=== PATIENT | female | born 1940 | race Caucasian/White ===

== ENCOUNTER 2016-08-16 17:59 | Emergency (ER) | payer BC, MEDICARE ==
[~2016-08-16] VITALS: Ht 160 cm; Wt 81.6 kg
[2016-08-16 18:00] VITALS: BP 156/84
[2016-08-16] MEDS ORDERED: IPRATRPIUM/ALBUTEROL 0.5/2.5MG 3 ML NEBU. NEB ONE (18:30)
[2016-08-16] MEDS ORDERED: PRED50TA PO (19:52)
--- NOTE | 2016-08-16 19:52 | PHYS DOC ---
Past Medical History Past Medical History: No Pertinent History Past Surgical History: Other Additional Past Surgical Histo: BILAT SINUS SGRY Alcohol Use: None Drug Use: None Adult General Chief Complaint Chief Complaint: SHORTNESS OF BREATH HPI HPI Patient is a 75 year old female who presents with sinus congestion. She reports chronic many year struggle with sinus problems having seen many specialists & undergone 2 sinus surgeries. Most recently over the past month she has been struggling with recurrent nasal/sinus congestion & dry cough with sensation of dyspnea because her nose is congested. She denies fevers/chills, chest pain, vomiting, abdominal pain, lower extremity pain/swelling. She has taken a course of steroids, azithromycin as well as augmentin, using mucinex & inhaler. She states [employer] doesn't work for her. She denies asthma, COPD, CAD, CHF. She is a nonsmoker but has been exposed to secondhand smoke. Review of Systems Review of Systems Constitutional: Denies fever or chills HENT: Reports nasal congestion, denies sore throat Respiratory: Reports cough & shortness of breath Cardiovascular: Denies chest pain or edema GI: Denies abdominal pain, nausea, vomiting Musculoskeletal: Denies back pain or joint pain Integument: Denies rash or skin lesions Neurologic: Denies headache, focal weakness or sensory changes Current Medications Current Medications Current Medications Medications (Trade) Dose Ordered Sig/Abisai Start Time Stop Time Status Last Admin Dose Admin Albuterol/ Ipratropium (Duoneb) 3 ml 1X ONCE 08/16/16 18:30 08/16/16 18:31 DC 08/16/16 18:37 3 ML Allergies Allergies Allergies Coded Allergies Type Severity Reaction Last Updated Verified naproxen Allergy Intermediate 11/03/14 No Physical Exam Physical Exam Constitutional: obese, no acute distress, non-toxic appearance. HENT: Normocephalic, atraumatic, bilateral external ears normal, oropharynx moist, no tonsillar enlargement/exudate, nose normal. No sinus tenderness with palpation. Eyes: conjunctiva normal, no discharge. Neck: supple, no stridor. Cardiovascular: RRR, no murmurs, no edema. Lungs & Thorax: LCTAB, no wheezing, no respiratory distress. oxygen saturation 100% on room air with good waveform Abdomen: soft, nontender, nondistended. Skin: Warm, dry, no erythema, no rash. Back: No tenderness. Extremities: No tenderness, no edema. no calf tenderness or swelling. Neurologic: Alert and oriented X 3, no focal deficits noted. Psychologic: Affect normal, judgement normal, mood normal. Current Patient Data Vital Signs Vital Signs Date Time Temp Pulse Resp B/P (MAP) Pulse Ox O2 Delivery O2 Flow Rate FiO2 08/16/16 18:37 96 Room Air 08/16/16 18:00 97.6 105 24 156/84 (108) 97.6 EKG EKG [] Radiology/Procedures Radiology/Procedures Chest x-ray: Interpreted by me: No cardiomegaly, no infiltrate, no pneumothorax , no acute process. Course & Med Decision Making Course & Med Decision Making Pertinent Labs and Imaging studies reviewed. (See chart for details) The patient presents with sinus congestion. Her oxygen saturation is 100% at rest,. Gave duoneb. Walking desat trial shows oygen saturation greater than or equal to 98% while ambulating on room air. Unremarkable CXR. Afebrile, I find no evidence of acute bacterial infection. Discussed risks of additional antibiotics. Not sure that additional steroids will provide benefit but she is not diabetic & requests additional steroid burst which I agreed to provide. Encouraged to continue home treatments - inhaler, mucinex, possibly try nonsedating antihistamine. Follow up with PCP or ENT if symptoms persist. Return for severe shortness of breath or chest pain, or otherwise worsening condition. [] Dragon Disclaimer Dragon Disclaimer This electronic medical record was generated, in whole or in part, using a voice recognition dictation system. Departure Departure Impression: Primary Impression: Upper respiratory infection Disposition: HOME, SELF-CARE Condition: STABLE Referrals: LUIZA RIVERA MD (PCP) Patient Instructions: Upper Respiratory Infection, Adult, [id number] Additional Instructions: You were seen in the emergency department today for shortness of breath. Your x- ray was normal and her oxygen saturation was 100%. This is likely a virus which will take time to get better. Please continue home treatments including inhaler , nasal spray, neti pot, also try nonsedating allergy medication such as claritin or zyrtec, & take prednisone. Follow up with primary care or ENT. Come back for severe shortness of breath or chest pain, or any otherwise worsening condition. Scripts Prednisone (PREDNISONE) 50 Mg Tablet 1 TAB PO DAILY, #5 TAB Prov: LYLE YANG MD 08/16/16 LYLE YANG MD Aug 16, 2016 19:52
--- NOTE | 2016-08-17 08:09 | RAD ---
PA AND LATERAL CHEST RADIOGRAPH Clinical Indication: sob. X2 weeks. Midsternal chest pain, rattling and wheezing lung sounds. Comparison: None. Findings: The cardiomediastinal silhouette is normal. Small hiatal hernia. Pulmonary vasculature is normal. Minimal linear scarring or atelectasis in the lingula. The lungs are otherwise clear. No pleural effusion or pneumothorax is seen. Diffuse demineralization. No obvious compression fracture. Left shoulder arthroplasty. IMPRESSION: 1. No acute cardiopulmonary process. 2. Small hiatal hernia.
== END 2016-08-16 19:59 | disposition home or self-care (01) ==
LOC: ER 17:59
DX: J06.9 Acute upper respiratory infection, unspecified (principal); Z88.6 Allergy status to analgesic agent
CPT/HCPCS: 71020; 94250; 94640; 99284; J7620; 99283-25

== ENCOUNTER 2018-01-16 09:29 | Observation (INO) | payer BC, MEDICARE ==
[~2018-01-16] VITALS: Ht 160 cm; Wt 80.3 kg
[~2018-01-16 09:29] MED LIST: PRED50TA PO
--- NOTE | 2018-01-16 10:17 | PHYS DOC ---
Past Medical History Past Medical History: Anxiety, Asthma, Depression Past Surgical History: Cholecystectomy, Hysterectomy, Tonsillectomy, Other Additional Past Surgical Histo: BILAT SINUS SGRY, BILAT SHOULDER, Alcohol Use: Occasionally Drug Use: None Adult General Chief Complaint Chief Complaint: WEAKNESS/GENERALIZED HPI HPI Patient is a 77 year old female who presents with worsening shortness of breath /dyspnea on exertion over the past month with generalized weakness. Symptoms get worse with exertion, patient is unable to climb a flight of stairs without having stopped. No chest pain, no palpitations, no lower extremity weakness. Patient does note that she has to sit upright at nighttime to sleep which is new for her over the past month. No fevers. No nausea or vomiting. She has been seen at an urgent care several times for presumed asthma/bronchitis and was started on inhaler which really hasn't improved symptoms at all. Currently she has no symptoms that she is laying in the bed. [] Review of Systems Review of Systems Constitutional: Denies fever or chills [] Eyes: Denies change in visual acuity, redness, or eye pain [] HENT: Denies nasal congestion or sore throat [] Respiratory: Reports cough that is nonproductive, and shortness of breath as per the history of present illness [] Cardiovascular: No additional information not addressed in HPI [] GI: Denies abdominal pain, nausea, vomiting, bloody stools or diarrhea [] : Denies dysuria or hematuria [] Musculoskeletal: Denies back pain or joint pain [] Integument: Denies rash or skin lesions [] Neurologic: Denies headache, focal weakness or sensory changes [] Endocrine: Denies polyuria or polydipsia [] All other systems were reviewed and found to be within normal limits, except as documented in this note. Current Medications Current Medications Current Medications Medications (Trade) Dose Ordered Sig/Abisai Start Time Stop Time Status Last Admin Dose Admin Aspirin (Children'S Aspirin) 324 mg 1X ONCE 01/16/18 10:30 01/16/18 10:31 DC 01/16/18 11:00 324 MG Allergies Allergies Allergies Coded Allergies Type Severity Reaction Last Updated Verified naproxen Allergy Intermediate 11/03/14 No Physical Exam Physical Exam Constitutional: Well developed, well nourished, no acute distress, non-toxic appearance. [] HENT: Normocephalic, atraumatic, bilateral external ears normal, oropharynx moist, no oral exudates, nose normal. [] Eyes: PERRLA, EOMI, conjunctiva normal, no discharge. [] Neck: Normal range of motion, no tenderness, supple, no stridor. [] Cardiovascular:Heart rate regular rhythm, no murmur [] Lungs & Thorax: Bilateral breath sounds clear to auscultation [] Abdomen: Bowel sounds normal, soft, no tenderness, no masses, no pulsatile masses. [] Skin: Warm, dry, no erythema, no rash. [] Back: No tenderness, no CVA tenderness. [] Extremities: No tenderness, no cyanosis, no clubbing, ROM intact, no edema. [] Neurologic: Alert and oriented X 3, normal motor function, normal sensory function, no focal deficits noted. [] Psychologic: Affect normal, judgement normal, mood normal. [] Current Patient Data Vital Signs Vital Signs Date Time Temp Pulse Resp B/P (MAP) Pulse Ox O2 Delivery O2 Flow Rate FiO2 01/16/18 10:00 98.0 71 16 197/90 (125) 97 Room Air 98.0 Lab Values Laboratory Tests Test 01/16/18 10:39 White Blood Count 6.1 x10^3/uL (4.0-11.0) Red Blood Count 4.47 x10^6/uL (3.50-5.40) Hemoglobin 13.8 g/dL (12.0-15.5) Hematocrit 40.0 % (36.0-47.0) Mean Corpuscular Volume 90 fL (79-100) Mean Corpuscular Hemoglobin 31 pg (25-35) Mean Corpuscular Hemoglobin Concent 34 g/dL (31-37) Red Cell Distribution Width 14.1 % (11.5-14.5) Platelet Count 272 x10^3/uL (140-400) Neutrophils (%) (Auto) 55 % (31-73) Lymphocytes (%) (Auto) 29 % (24-48) Monocytes (%) (Auto) 10 % (0-9) H Eosinophils (%) (Auto) 6 % (0-3) H Basophils (%) (Auto) 0 % (0-3) Neutrophils # (Auto) 3.4 x10^3uL (1.8-7.7) Lymphocytes # (Auto) 1.7 x10^3/uL (1.0-4.8) Monocytes # (Auto) 0.6 x10^3/uL (0.0-1.1) Eosinophils # (Auto) 0.4 x10^3/uL (0.0-0.7) Basophils # (Auto) 0.0 x10^3/uL (0.0-0.2) Sodium Level 137 mmol/L (136-145) Potassium Level 4.1 mmol/L (3.5-5.1) Chloride Level 102 mmol/L (98-107) Carbon Dioxide Level 25 mmol/L (21-32) Anion Gap 10 (6-14) Blood Urea Nitrogen 24 mg/dL (7-20) H Creatinine 1.1 mg/dL (0.6-1.0) H Estimated GFR (Cockcroft-Gault) 48.0 BUN/Creatinine Ratio 22 (6-20) H Glucose Level 92 mg/dL (70-99) Calcium Level 9.3 mg/dL (8.5-10.1) Magnesium Level 1.8 mg/dL (1.8-2.4) Total Bilirubin 0.4 mg/dL (0.2-1.0) Aspartate Amino Transferase (AST) 16 U/L (15-37) Alanine Aminotransferase (ALT) 15 U/L (14-59) Alkaline Phosphatase 78 U/L (46-116) Troponin I Quantitative < 0.017 ng/mL (0.000-0.055) Total Protein 7.2 g/dL (6.4-8.2) Albumin 3.3 g/dL (3.4-5.0) L Albumin/Globulin Ratio 0.8 (1.0-1.7) L Lipase 219 U/L (73-393) Laboratory Tests 01/16/18 10:39 Laboratory Tests 01/16/18 10:39 EKG EKG EKG shows sinus rhythm, axis of -2, QTC of 417 ms, no ST elevation[] Radiology/Procedures Radiology/Procedures Chest x-ray shows no acute cardiopulmonary abnormality, small hiatal hernia is present[] Course & Med Decision Making Course & Med Decision Making Pertinent Labs and Imaging studies reviewed. (See chart for details) ED course: Patient arrived, was placed in bed, in tolerate exam well. Patient had no pain, she was administered aspirin due to concern for this being cardiac related complaints today. She tolerated this well. Consultation was made with the hospitalist service for admission. Discussed findings and plan with patient who voiced understanding. All questions were answered. Medical decision making: There is no evidence of pneumonia or pneumothorax. Given the worsening symptoms with exertion concern that this is the patient's cardiac equivalent.[] Dragon Disclaimer Dragon Disclaimer This electronic medical record was generated, in whole or in part, using a voice recognition dictation system. Departure Departure Impression: Primary Impression: Dyspnea on exertion Additional Impression: Weakness Disposition: 09 ADMITTED INPATIENT Admitting Physician: Xie. Thornton Condition: STABLE Referrals: LUIZA RIVERA MD (PCP) Problem Qualifiers NONA MENDOZA DO Jan 16, 2018 10:17
[2018-01-16] MEDS ORDERED: ASPIRIN CHEWABLE 81 MG TABLET. PO ONE (10:30)
--- NOTE | 2018-01-16 10:35 | RAD ---
Two-view chest 01/16/2018 CLINICAL INDICATION: Weakness, shortness of air. COMPARISON: Chest 08/16/2016 FINDINGS: Cardiac and mediastinal silhouettes unremarkable. No pleural effusion, pneumothorax or focal consolidation. Minimal left basilar scarring. There is a small hiatal hernia. Bilateral shoulder arthroplasties. IMPRESSION: 1. No acute cardiopulmonary abnormality. 2. Small hiatal hernia. Electronically signed by: Valeriy Avendaño MD (01/16/2018 10:32 AM) [facility]
[2018-01-16 10:48] LABS: BASO % 0 % (0-3); EOS # 0.4 x10^3/uL (0.0-0.7); EOS % 6 % (0-3); HEMOGLOBIN 13.8 g/dL (12.0-15.5); LYMPH # 1.7 x10^3/uL (1.0-4.8); LYMPH % 29 % (24-48); MEAN CORPUSCULAR HEMOGLOBIN 31 pg (25-35); MEAN CORPUSCULAR HGB CONC 34 g/dL (31-37); MEAN CORPUSCULAR VOLUME 90 fL (79-100); MONO # 0.6 x10^3/uL (0.0-1.1); MONO % 10 % (0-9); NEUT # 3.4 x10^3uL (1.8-7.7); NEUT % 55 % (31-73); PLATELET COUNT 272 x10^3/uL (140-400); RED BLOOD COUNT 4.47 x10^6/uL (3.50-5.40); RED CELL DISTRIBUTION WIDTH 14.1 % (11.5-14.5); WHITE BLOOD COUNT 6.1 x10^3/uL (4.0-11.0)
[2018-01-16 10:55] LABS: CALCIUM 9.3 mg/dL (8.5-10.1); CREATININE 1.1 mg/dL (0.6-1.0); POTASSIUM 4.1 mmol/L (3.5-5.1)
[2018-01-16 10:59] LABS: PROTHROMBIN TIME PATIENT 12.6 SEC (11.7-14.0)
[2018-01-16 11:01] LABS: ALBUMIN 3.3 g/dL (3.4-5.0); ALBUMIN/GLOBULIN RATIO 0.8 (1.0-1.7); MAGNESIUM 1.8 mg/dL (1.8-2.4); TOTAL BILIRUBIN 0.4 mg/dL (0.2-1.0); TOTAL PROTEIN 7.2 g/dL (6.4-8.2)
[2018-01-16] MEDS ORDERED: ONDANSETRON PF 4 MG/2 ML VIAL. IV PRN (11:30)
[2018-01-16 12:30] VITALS: BP 148/92
[2018-01-16] MEDS ORDERED: ACET325T9 PO (13:03)
[2018-01-16] MEDS ORDERED: [UNRECOGNIZED DRUG - CODE] PO (13:03)
[2018-01-16] MEDS ORDERED: FLUO40CA9 PO (13:03)
--- NOTE | 2018-01-16 13:59 | CONS ---
DATE OF CONSULTATION: REASON FOR CONSULTATION: Shortness of breath. HISTORY OF PRESENT ILLNESS: The patient is a 77-year-old female with a 5- to 6-week history of productive cough, increased dyspnea on exertion, worsening to the point where she cannot go upstairs anymore. She is having trouble doing daily activities. She reports new increased trouble lying flat and now to the point of using 2 pillows per day to sleep at night. She reports increased anxiety lately. She reports some fevers and chills and denies any nausea, vomiting or headache. MEDICATIONS: Ondansetron and Prozac. ALLERGIES: ALEVE CAUSES HIVES. PAST MEDICAL HISTORY: Depression and chronic sinus infections. PAST SURGICAL HISTORY: Hysterectomy, gallbladder and bilateral shoulder surgeries. FAMILY HISTORY: Mom, enlarged heart. SOCIAL HISTORY: Tobacco denies. Alcohol denies. Recreational drugs, none. PHYSICAL EXAMINATION: GENERAL: In no acute distress, alert and oriented. LUNGS: Clear to auscultation bilaterally. HEART: Regular rate and rhythm. Normal S1 and S2. ABDOMEN: Normal bowel sounds. Soft, nontender to palpation. No organomegaly. EXTREMITIES: Mild 1+ edema, bilateral lower extremities. SKIN: No rashes or lesions. ASSESSMENT: 1. Dyspnea on exertion. 2. Acute kidney injury. 3. Anxiety. PLAN: 1. Given age, new symptoms, will start with Echo and determine further testing as needed. Thanks. RHIANNON ONEIL MD DR: TING/daxa JOB#: [id number] / [id number] KARTIK
[2018-01-16] MEDS ORDERED: ACETAMINOPHEN 325 MG TABLET. PO PRN (14:45)
[2018-01-16] MEDS ORDERED: LORazepam 0.5 MG TABLET PO PRN (14:45)
[2018-01-16 15:00] VITALS: BP 145/97
[2018-01-16] MEDS: FLUoxetine HCL 20 MG CAPSULE PO SCH (15:23)
--- NOTE | 2018-01-16 15:39 | PDOC ---
Provider Note Provider Note Etiology of dyspnea likely related to uncontrolled HTN. Her BNP, EKG and CXR do not support HF. Lower ext likely due to diastolic HF. Obtain echo and if echo wnl, will plan for BP control and outpt PFT's and ischemic eval if she still has symptoms after BP control. RHIANNON ONEIL MD Jan 16, 2018 15:39
[2018-01-16] MEDS ORDERED: amLODIPine BESYLATE 5 MG TABLET PO ONE (16:00)
--- NOTE | 2018-01-16 16:09 | EKG ---
[facility] [address] [place] [address] Test Date: 2018-01-16 Test Time: 10:27:50 Pat Name: SIRIA MEJIA Department: Room: 244 1 Gender: F [employer]: : 1940 Requested By: NONA MENDOZA Order Number: [id number] Reading MD: Andrew Medeiros MD Measurements Intervals [place] Rate: 67 P: 26 LA: 156 QRS: -2 QRSD: 80 T: 28 QT: 392 QTc: 417 Interpretive Statements SINUS RHYTHM LEFTWARD AXIS QRS(T) CONTOUR ABNORMALITY CONSISTENT WITH INFERIOR INFARCT PROBABLY OLD ABNORMAL ECG Electronically Signed On 01-18-2018 8:36:06 [employer] by Andrew Medeiros MD
[2018-01-16 19:05] VITALS: BP 161/77
[2018-01-16] MEDS: METOPROLOL TART IMMED RELEASE 25 MG TABLET. PO SCH (20:38)
[2018-01-16 23:18] VITALS: BP 159/79
[2018-01-17 03:30] VITALS: BP 140/65
[2018-01-17 06:12] LABS: CHOLESTEROL/HDL RATIO 3.1
[2018-01-17 07:00] VITALS: BP 148/81
[2018-01-17] MEDS: FLUoxetine HCL 20 MG CAPSULE PO SCH (08:07)
[2018-01-17] MEDS: METOPROLOL TART IMMED RELEASE 25 MG TABLET. PO SCH (08:11)
[2018-01-17] MEDS ORDERED: amLODIPine BESYLATE 10 MG TABLET PO SCH (09:00)
--- NOTE | 2018-01-17 09:12 | PDOC ---
CARDIOLOGY PROGRESS NOTE SUBJECTIVE: No new events. Mild cough. OBJECTIVE: Vital SIgns: Vital Signs Date Time Temp Pulse Resp B/P (MAP) Pulse Ox O2 Delivery O2 Flow Rate FiO2 01/17/18 08:11 64 148/81 01/17/18 08:00 Room Air 01/17/18 07:00 97.9 18 97 97.9 I & O Intake and Output 01/17/18 07:00 Intake Total 300 ml Balance 300 ml Intake Oral 300 ml # Voids 4 Objective: Bilateral rhonchi. Normal heart tones. No edema. CURRENT MEDICATIONS: Current Medications Medications (Trade) Dose Ordered Sig/Abisai Start Time Stop Time Status Last Admin Dose Admin Acetaminophen (Tylenol) 650 mg PRN Q6HRS PRN 01/16/18 14:45 01/16/18 19:10 650 MG Amlodipine Besylate (Norvasc) 10 mg DAILY 01/17/18 09:00 01/17/18 08:11 10 MG Aspirin (Children'S Aspirin) 324 mg 1X ONCE 01/16/18 10:30 01/16/18 10:31 DC 01/16/18 11:00 324 MG Atorvastatin Calcium (Lipitor) 20 mg QHS 01/17/18 21:00 Fluoxetine HCl (PROzac) 40 mg DAILY 01/16/18 15:00 01/17/18 08:07 40 MG Influenza Virus Vaccine (Afluria Trivalent [id number] Syringe) 0.5 ml ONCE ONCE 01/16/18 13:30 01/16/18 13:31 DC 01/16/18 15:21 0.5 ML Lorazepam (Ativan) 0.5 mg PRN Q8HRS PRN 01/16/18 14:45 01/16/18 20:37 0.5 MG Metoprolol Tartrate (Lopressor) 25 mg BID 01/16/18 21:00 01/17/18 08:11 25 MG Ondansetron HCl (Zofran) 4 mg PRN Q8HRS PRN 01/16/18 11:30 01/17/18 11:29 DIAGNOSTIC TESTING: No new testing ASSESSMENT: 1. Dyspnea - Likely bronchitis versus HTN. 2. HTN 3. Mild dyslipidemia PLAN: 1. Home on low dose Metoprolol, ASA 81mg daily, Amlodipine 10mg daily and Atorvastatin 20mg qhs 2. Will plan for outpt stress test. 3. Ok to DC after echo completed today. Thanks. RHIANNON ONEIL MD Jan 17, 2018 09:12
[2018-01-17 10:45] VITALS: BP 148/85
[2018-01-17] MEDS ORDERED: METO25TA4 PO (12:28)
[2018-01-17] MEDS ORDERED: LORA0.5T96 PO (12:28)
[2018-01-17] MEDS ORDERED: AMLO10TA6 PO (12:28)
[2018-01-17] MEDS ORDERED: ATOR20TA58 PO (12:28)
--- NOTE | 2018-01-17 14:00 | CARD ---
MR#: [id number] Date of Study: 01/17/2018 Ordering Physician: RAMON ADAMSON, Referring Physician: RAMON ADAMSON, Tech: Olga England [facility] APPROVED REPORT EXAM: Two-dimensional and M-mode echocardiogram with Doppler and color Doppler. Other Information Quality : GoodHR: 59bpm Rhythm : NSR INDICATION Dyspnea 2D DIMENSIONS RVDd2.7 (2.9-3.5cm)Left Atrium(2D)3.7 (1.6-4.0cm) IVSd1.2 (0.7-1.1cm)Aortic Root(2D)3.0 (2.0-3.7cm) LVDd3.0 (3.9-5.9cm)LVOT Diameter2.0 (1.8-2.4cm) PWd1.2 (0.7-1.1cm)LVDs1.8 (2.5-4.0cm) FS (%) 42.2 %SV26.7 ml LVEF(%)74.7 (>50%) M-Mode DIMENSIONS Left Atrium(MM)3.94 (2.5-4.0cm)Aortic Root2.90 (2.2-3.7cm) Aortic Valve AoV Peak Solomon.112.9cm/sAoV VTI25.4cm AO Peak GR.5.1mmHgLVOT Peak Solomon.87.3cm/s AO Mean GR.3mmHgAVA (VMAX)2.42cm2 NEHEMIAS (VTI)2.40cm2 Mitral Valve MV E Ttttvhff10.3cm/sMV DECEL [id number] MV A Saqvenzo27.7cm/sE/A Ratio1.2 MV A [id number] Pulmonary Valve PV Peak Awjcdmgu87.2cm/s LEFT VENTRICLE The left ventricle cavity is small. There is normal left ventricular wall thickness. The left ventric le is hyperdynamic. The Ejection Fraction is >70%. There is normal LV segmental wall motion. Transmit ral Doppler flow pattern is Grade II-pseudonormal filling dynamics. RIGHT VENTRICLE The right ventricle is normal size. There is normal right ventricular wall thickness. The right ventr icular systolic function is normal. ATRIA The left atrium size is normal. The right atrium size is normal. The interatrial septum is intact wit h no evidence for an atrial septal defect or patent foramen ovale as noted on 2-D or Doppler imaging. AORTIC VALVE The aortic valve is normal in structure and function. The aortic valve is trileaflet. Doppler and Col or Flow revealed no significant aortic regurgitation. There is no significant aortic valvular stenosi s. MITRAL VALVE The mitral valve is normal in structure and function. There is no evidence of mitral valve prolapse. There is no mitral valve stenosis. Doppler and Color-flow revealed trace mitral regurgitation. TRICUSPID VALVE The tricuspid valve is normal in structure and function. Doppler and Color Flow revealed no tricuspid valve regurgitation noted. There is no tricuspid valve prolapse or vegetation. There is no tricuspid valve stenosis. PULMONIC VALVE The pulmonary valve is normal in structure and function. Doppler and Color Flow revealed trace pulmon ic valvular regurgitation. There is no pulmonic valvular stenosis. GREAT VESSELS The aortic root is normal in size. The ascending aorta is normal in size. PERICARDIAL EFFUSION There is no evidence of significant pericardial effusion. Critical Notification Critical Value: No <Conclusion> The left ventricle is hyperdynamic. The Ejection Fraction is >70%. Signed by : Andrew Medeiros, Electronically Approved : 01/17/2018 13:58:57
--- NOTE | 2018-01-17 19:36 | PDOC1 ---
History and Physical History of Present Illness History of Present Illness HPI from ED Patient is a 77 year old female who presents with worsening shortness of breath /dyspnea on exertion over the past month with generalized weakness. Symptoms get worse with exertion, patient is unable to climb a flight of stairs without having stopped. No chest pain, no palpitations, no lower extremity weakness. Patient does note that she has to sit upright at nighttime to sleep which is new for her over the past month. No fevers. No nausea or vomiting. She has been seen at an urgent care several times for presumed asthma/bronchitis and was started on inhaler which really hasn't improved symptoms at all. Currently she has no symptoms that she is laying in the bed. [] Oy my exam, doing well and no complaints. Has been seen by cards and recc is to be ct'ed. Echo is pending Current Problem List Problem List Problems Medical Problems: (1) Dyspnea on exertion Status: Acute (2) Weakness Status: Acute Current Medications Current Medications Current Medications Medications (Trade) Dose Ordered Sig/Abisai Start Time Stop Time Status Last Admin Dose Admin Acetaminophen (Tylenol) 650 mg PRN Q6HRS PRN 01/16/18 14:45 01/17/18 16:02 DC 01/16/18 19:10 650 MG Amlodipine Besylate (Norvasc) 10 mg DAILY 01/17/18 09:00 01/17/18 16:02 DC 01/17/18 08:11 10 MG Aspirin (Children'S Aspirin) 324 mg 1X ONCE 01/16/18 10:30 01/16/18 10:31 DC 01/16/18 11:00 324 MG Atorvastatin Calcium (Lipitor) 20 mg QHS 01/17/18 21:00 01/17/18 21:00 IN Fluoxetine HCl (PROzac) 40 mg DAILY 01/16/18 15:00 01/17/18 16:02 DC 01/17/18 08:07 40 MG Influenza Virus Vaccine (Afluria Trivalent [id number] Syringe) 0.5 ml ONCE ONCE 01/16/18 13:30 01/16/18 13:31 DC 01/16/18 15:21 0.5 ML Lorazepam (Ativan) 0.5 mg PRN Q8HRS PRN 01/16/18 14:45 01/17/18 16:02 DC 01/16/18 20:37 0.5 MG Metoprolol Tartrate (Lopressor) 25 mg BID 01/16/18 21:00 01/17/18 16:02 DC 01/17/18 08:11 25 MG Ondansetron HCl (Zofran) 4 mg PRN Q8HRS PRN 01/16/18 11:30 01/17/18 11:29 DC Allergies Allergies Allergies Coded Allergies Type Severity Reaction Last Updated Verified naproxen Allergy Intermediate 11/03/14 No ROS Review of System CONSTITUTIONAL: No fever or chills EYES: No recent changes SKIN: No rash or itching CARDIOVASCULAR: No chest pain, syncope, palpitations, or edema RESPIRATORY: No SOB or cough GASTROINTESTINAL: No nausea, vomiting or abdominal pain NEUROLOGICAL: No headaches or weakness ENDOCRINE: No cold or heat intolerance GENITOURINARY: No urgency or frequency of urination MUSCULOSKELETAL: No back pain or joint pain LYMPHATICS: No enlarged lymph nodes PSYCHIATRIC: No anxiety or depression Physical Exam Physical Exam GEN.: No apparent distress. Alert and oriented. HEENT: Head is normocephalic, atraumatic NECK: Supple. LUNGS: Clear to auscultation. HEART: RRR, S1, S2 present. Peripheral pulses intact ABDOMEN: Soft, nontender. Positive bowel sounds. EXTREMITIES: Without any cyanosis. NEUROLOGIC: Normal speech, normal tone PSYCHIATRIC: Normal affect, normal mood. SKIN: No ulcerations Vitals Vitals Vital Signs Date Time Temp Pulse Resp B/P (MAP) Pulse Ox O2 Delivery O2 Flow Rate FiO2 01/17/18 10:45 97.8 64 18 148/85 (106) 97 Room Air 97.8 Labs Labs Laboratory Tests Test 01/16/18 10:39 01/16/18 12:00 01/16/18 18:00 01/17/18 00:40 White Blood Count 6.1 x10^3/uL (4.0-11.0) Red Blood Count 4.47 x10^6/uL (3.50-5.40) Hemoglobin 13.8 g/dL (12.0-15.5) Hematocrit 40.0 % (36.0-47.0) Mean Corpuscular Volume 90 fL (79-100) Mean Corpuscular Hemoglobin 31 pg (25-35) Mean Corpuscular Hemoglobin Concent 34 g/dL (31-37) Red Cell Distribution Width 14.1 % (11.5-14.5) Platelet Count 272 x10^3/uL (140-400) Neutrophils (%) (Auto) 55 % (31-73) Lymphocytes (%) (Auto) 29 % (24-48) Monocytes (%) (Auto) 10 % (0-9) Eosinophils (%) (Auto) 6 % (0-3) Basophils (%) (Auto) 0 % (0-3) Neutrophils # (Auto) 3.4 x10^3uL (1.8-7.7) Lymphocytes # (Auto) 1.7 x10^3/uL (1.0-4.8) Monocytes # (Auto) 0.6 x10^3/uL (0.0-1.1) Eosinophils # (Auto) 0.4 x10^3/uL (0.0-0.7) Basophils # (Auto) 0.0 x10^3/uL (0.0-0.2) Prothrombin Time 12.6 SEC (11.7-14.0) Prothromb Time International Ratio 1.0 (0.8-1.1) Sodium Level 137 mmol/L (136-145) Potassium Level 4.1 mmol/L (3.5-5.1) Chloride Level 102 mmol/L (98-107) Carbon Dioxide Level 25 mmol/L (21-32) Anion Gap 10 (6-14) Blood Urea Nitrogen 24 mg/dL (7-20) Creatinine 1.1 mg/dL (0.6-1.0) Estimated GFR (Cockcroft-Gault) 48.0 BUN/Creatinine Ratio 22 (6-20) Glucose Level 92 mg/dL (70-99) Calcium Level 9.3 mg/dL (8.5-10.1) Magnesium Level 1.8 mg/dL (1.8-2.4) Total Bilirubin 0.4 mg/dL (0.2-1.0) Aspartate Amino Transf (AST/SGOT) 16 U/L (15-37) Alanine Aminotransferase (ALT/SGPT) 15 U/L (14-59) Alkaline Phosphatase 78 U/L (46-116) Troponin I Quantitative < 0.017 ng/mL (0.000-0.055) < 0.017 ng/mL (0.000-0.055) < 0.017 ng/mL (0.000-0.055) < 0.017 ng/mL (0.000-0.055) UU-Eqc-E-Type Natriuretic Peptide 480 pg/mL (0-449) Total Protein 7.2 g/dL (6.4-8.2) Albumin 3.3 g/dL (3.4-5.0) Albumin/Globulin Ratio 0.8 (1.0-1.7) Lipase 219 U/L (73-393) Test 01/17/18 02:30 Triglycerides Level 84 mg/dL (0-150) Cholesterol Level 220 mg/dL (0-200) LDL Cholesterol, Calculated 132 mg/dL (0-100) VLDL Cholesterol, Calculated 17 mg/dL (0-40) Non-HDL Cholesterol Calculated 149 mg/dL (0-129) HDL Cholesterol 71 mg/dL (40-60) Cholesterol/HDL Ratio 3.1 Laboratory Tests Test 01/17/18 00:40 01/17/18 02:30 Troponin I Quantitative < 0.017 ng/mL (0.000-0.055) Triglycerides Level 84 mg/dL (0-150) Cholesterol Level 220 mg/dL (0-200) LDL Cholesterol, Calculated 132 mg/dL (0-100) VLDL Cholesterol, Calculated 17 mg/dL (0-40) Non-HDL Cholesterol Calculated 149 mg/dL (0-129) HDL Cholesterol 71 mg/dL (40-60) Cholesterol/HDL Ratio 3.1 VTE Prophylaxis Ordered VTE Prophylaxis Devices: Yes VTE Pharmacological Prophylaxi: No Assessment/Plan Assessment/Plan Cards RAMON Perdue MD Jan 17, 2018 19:36
--- NOTE | 2018-01-17 19:40 | PDOC3 ---
Discharge Summary IPC Final Diagnosis Problems Medical Problems: (1) Dyspnea on exertion Status: Acute (2) Weakness Status: Acute Brief Hospital Course 77 year old female who presents with worsening shortness of breath/dyspnea on exertion over the past month with generalized weakness. Symptoms get worse with exertion, patient is unable to climb a flight of stairs without having stopped. No chest pain, no palpitations, no lower extremity weakness. Patient does note that she has to sit upright at nighttime to sleep which is new for her over the past month. No fevers. No nausea or vomiting. She has been seen at an urgent care several times for presumed asthma/bronchitis and was started on inhaler which really hasn't improved symptoms at all. Currently she has no symptoms that she is laying in the bed. Echo reviewed by cards. Pena to [facility] home Scheduled Amlodipine Besylate (Amlodipine Besylate), 10 MG PO DAILY Atorvastatin Calcium (Atorvastatin Calcium), 20 MG PO QHS Fluoxetine Hcl (Prozac), 1 CAP PO DAILY, (Reported) Metoprolol Tartrate (Metoprolol Tartrate), 25 MG PO BID Scheduled PRN Lorazepam (Ativan), 0.5 MG PO PRN Q8HRS PRN for ANXIETY / AGITATION Discontinued Medications Acetaminophen (Tylenol), 650 MG PO PRN Q6HRS PRN for HEADACHE, (Reported) Meprobamate (Meprobamate), 400 MG PO QID PRN for ANXIETY, (Reported) Prednisone (Prednisone), 1 TAB PO DAILY RAMON ADAMSON MD Jan 17, 2018 19:40
[2018-01-17] MEDS ORDERED: ATORVASTATIN CALCIUM 20 MG TABLET PO SCH (21:00)
== END 2018-01-17 16:02 | disposition home or self-care (01) ==
LOC: ER 09:29 → 2 SOUTH 11:05
PROVIDERS: ADMIT Hospitalist; ATTEND Hospitalist
DX: R06.09 Other forms of dyspnea (principal); R53.1 Weakness; I10 Essential (primary) hypertension; E78.5 Hyperlipidemia, unspecified; F41.9 Anxiety disorder, unspecified; N17.9 Acute kidney failure, unspecified; Z90.710 Acquired absence of both cervix and uterus; Z79.899 Other long term (current) drug therapy
CPT/HCPCS: 36415; 71046; 80053; 80061; 83690; 83735; 83880; 84484; 85025; 85610; 90471; 90756; 93005; 93306; 99284; G0378; G0379; Q2035

== ENCOUNTER 2018-07-31 17:59 | Emergency (ER) | payer MEDICARE ==
[~2018-07-31] VITALS: Ht 160 cm; Wt 77.1 kg
[~2018-07-31 17:59] MED LIST changes: +ACET325T9 PO; +AMLO10TA8 PO; +ATOR20TA58 PO; +FLUO40CA9 PO; +LORA0.5T96 PO; +METO25TA4 PO; +[UNRECOGNIZED DRUG - CODE] PO
[2018-07-31 18:02] VITALS: BP 180/85
[2018-07-31] MEDS ORDERED: FAMOTIDINE 20 MG/2 ML VIAL IVP ONE (18:15)
[2018-07-31] MEDS ORDERED: methylPREDNISolone SOD SUCC PF 125 MG/2 ML VIAL. IV ONE (18:15)
[2018-07-31] MEDS ORDERED: IV NORMAL SALINE 500ML BAG 500 ML IV ONE (18:15)
--- NOTE | 2018-07-31 18:24 | PHYS DOC ---
Past Medical History Past Medical History: Hypertension Past Surgical History: Cholecystectomy, Hysterectomy, Tonsillectomy, Other Additional Past Surgical Histo: BILAT SINUS SGRY, BILAT SHOULDER, Alcohol Use: None Drug Use: None Adult General Chief Complaint Chief Complaint: HIP PAIN HPI HPI Patient is a 77 year old female with a history of hypertension who presents to the ED today complaining of an allergic reaction. Patient took she is allergic to naproxen and took Aleve today for chronic left hip pain. She states immediately she took the medication she developed itching on her palms, tongue was swelling up. She took Benadryl, called 911. On arrival to the ED, she states her allergic reaction symptoms have subsided. She states she is no longer itching, tongue or throat or lips are not swollen. Review of Systems Review of Systems Constitutional: Denies fever or chills [] Eyes: Denies change in visual acuity, redness, or eye pain [] HENT: Reports tongue swelling. Denies nasal congestion or sore throat [] Respiratory: Denies cough or shortness of breath [] Cardiovascular: No additional information not addressed in HPI [] GI: Denies abdominal pain, nausea, vomiting, bloody stools or diarrhea [] : Denies dysuria or hematuria [] Musculoskeletal: Denies back pain or joint pain [] Integument: Reports itching, Neurologic: Denies headache, focal weakness or sensory changes [] All other systems were reviewed and found to be within normal limits, except as documented in this note. Current Medications Current Medications Current Medications Medications (Trade) Dose Ordered Sig/Abisai Start Time Stop Time Status Last Admin Dose Admin Famotidine (Pepcid Vial) 20 mg 1X ONCE 07/31/18 18:15 07/31/18 18:18 DC 07/31/18 18:30 20 MG Methylprednisolone Sodium Succinate (SOLU-Medrol 125MG VIAL) 125 mg 1X ONCE 07/31/18 18:15 07/31/18 18:18 DC 07/31/18 18:30 125 MG Sodium Chloride 500 ml @ 500 mls/hr 1X ONCE 07/31/18 18:15 07/31/18 19:14 07/31/18 18:26 500 MLS/HR Allergies Allergies Allergies Coded Allergies Type Severity Reaction Last Updated Verified naproxen Allergy Intermediate 11/03/14 No Physical Exam Physical Exam Constitutional: Well developed, well nourished, no acute distress, non-toxic appearance. [] HENT: Normocephalic, atraumatic, bilateral external ears normal, oropharynx moist, no oral exudates, nose normal. Airway is open.[] Eyes: PERRLA, EOMI, conjunctiva normal, no discharge. [] Neck: Normal range of motion, no tenderness, supple, no stridor. [] Cardiovascular:Heart rate regular rhythm, no murmur [] Lungs & Thorax: Bilateral breath sounds clear to auscultation [] Abdomen: Bowel sounds normal, soft, no tenderness, no masses, no pulsatile masses. [] Skin: Warm, dry, no erythema, no rash. [] Back: No tenderness, no CVA tenderness. [] Extremities: No tenderness, no cyanosis, no clubbing, ROM intact, no edema. [] Neurologic: Alert and oriented X 3, normal motor function, normal sensory function, no focal deficits noted. [] Psychologic: Affect normal, judgement normal, mood normal. [] Current Patient Data Vital Signs Vital Signs Date Time Temp Pulse Resp B/P (MAP) Pulse Ox O2 Delivery O2 Flow Rate FiO2 07/31/18 18:02 97.8 63 18 180/85 (116) 98 Room Air 97.8 EKG EKG [] Radiology/Procedures Radiology/Procedures [] Course & Med Decision Making Course & Med Decision Making Pertinent Labs and Imaging studies reviewed. (See chart for details) This is a 77-year-old female patient who presents to the ED today with an allergic reaction to Aleve. Patient has known allergy to naproxen, she took Aleve today for chronic left hip pain. She developed itching as well as tongue swelling. She took Benadryl right away. She arrives in the ED with no symptoms. Her airway is open. We did give her Solu-Medrol and Pepcid. Gave her IV fluids. She continues to be asymptomatic. She is discharged to home. Instructed to take Tylenol for her chronic hip pain. Follow-up with her own PCP. Lydia Disclaimer Lydia Disclaimer This electronic medical record was generated, in whole or in part, using a voice recognition dictation system. Departure Departure Impression: Primary Impression: Allergic reaction to drug Additional Impression: Left hip pain Disposition: HOME, SELF-CARE Condition: STABLE Referrals: LUIZA RIVERA MD (PCP) Follow-up in 1-2 weeks Patient Instructions: Drug Allergy, Hip Pain Additional Instructions: You were evaluated in the emergency room for an allergic reaction. Please do not take any NSAIDs which includes naproxen, Aleve, aspirin, diclofenac etc. please follow-up with your doctor in the course of next week, come back to the ED at any point symptoms worsen. Problem Qualifiers Primary Impression: Allergic reaction to drug Encounter type: initial encounter Qualified Codes: T78.40XA - Allergy, u nspecified, initial encounter YVONNE YOUSSEF ENVIRONMENTAL SUSTAINABILITY MANAGER Jul 31, 2018 18:24
== END 2018-07-31 19:44 | disposition home or self-care (01) ==
LOC: ER 17:59
DX: T78.40XA Allergy, unspecified, initial encounter (principal); T39.315A Adverse effect of propionic acid derivatives, initial encounter; G89.29 Other chronic pain; M25.552 Pain in left hip; I10 Essential (primary) hypertension; Z90.49 Acquired absence of other specified parts of digestive tract; Z90.710 Acquired absence of both cervix and uterus; Y92.89 Other specified places as the place of occurrence of the external cause; Z88.5 Allergy status to narcotic agent
CPT/HCPCS: 96374; 96375; 99284; J2930; J3490; J7040

== ENCOUNTER → 2020-01-03 | Outpatient (CLI) | payer BC, MEDICARE ==
[~2020-01-03] MED LIST changes: +AMLO-187 PO; -AMLO10TA8 PO; +REGADENOSON 0.4 MG/5 ML DISP.SYRIN. IV ONE
--- NOTE | 2020-01-03 15:44 | RAD ---
MR#: [id number] Date of Study: 01/03/2020 Ordering Physician: RHIANNON MEDEIROS, Referring Physician: GILL ROMERO Tech: GALE Moeller, ARRT (R) (N) APPROVED REPORT Test Type: Pharmacological Stress Nurse/Tech: TAMICA SMILEY Test Indications: CHEST PAIN, FAMILY HX Cardiac History: CP, HTN, SEE EMR Medications: SEE EMR Medical History: SEE EMR Resting ECG: SB/SR Resting Heart Rate: 59 bpm Resting Blood Pressure: 167/67mmHg Pretest Chest Pain: No chest pain Nurse/Tech Notes S1,S2, LUNGS CTA, DENIED SOA OR CP. VSS Consent: The procedure was explained to the patient in lay terms. Informed consent was witnessed. John eout was entered into [employer]. History and Stress Test performed by RT Leanne (Silva) (N) Pharm. Details Pharmacologic stress testing was performed using 0.4mg per 5ml of regadenoson given intravenously ove r 7-10 seconds. Stress Symptoms ONLY COMPLAINT PT HAD WAS FEELING A LITTLE NAUSEOUS. DENIED CP OR SOA. TOLERATED PROCEDURE WELL. POST EXERCISE Reason for Termination: Infusion complete Max HR: 83 bpm Max Blood Pressure: 174/85mmHg Blood Pressure response to exercise: Normal blood pressure response during stress. Heart Rate response to exercise: NORMAL HEART RATE RESPONSE DURING STRESS Chest Pain: No. Arrhythmia: No. ST Change: No. INTERPRETATION Stress EKG Conclusion: No evidence of stress induced EKG changes. Imaging Protocol IMAGE PROTOCOL: Rest Tc-99m/stress Tc-99m 1 day Rest: Stress: Viability: Radiopharm.Tc99m EndimsbhaIo45m Sestamibi Dose10.5mCi 33mCi Img Date 01/03/2020 01/03/2020 Inj-Img [id number]. 75min. Rest Admin Site:IV - Right AntecubitalAdministrator:RT Leanne (R)(N) Stress Admin Site: IV - Right AntecubitalAdministrator: RT Emily Perdomo)(N) STRESS DATA End Diast. Vol.54.0mlLVEDV index BSA30.0ml End Syst. Vol.7.0mlLVESV index BSA4.0ml Myocardial Iwht480.0gEject. Qhledjwe56.0% Stress Scores Regional WT0.00Summed WT0.00 Regional WM0.00Summed WM0.00 The rest and stress images show normal perfusion, normal contraction and thickening. LV Perf. Quant 17 Seg. SSS1.00 17 Seg. SRS0.00 17 Seg. SDS1.00 Stress Defect Extent (% LAD)0.00Rest Defect Extent (% LAD)0.00Rev. Defect Extent (% LAD)0.00 Stress Defect Extent (% LCX) 15.00Rest Defect Extent (% LCX)0.00Rev. Defect Extent (% LCX)7.50 Stress Defect Extent (% RCA)0.00Rest Defect Extent (% RCA)0.00Rev. Defect Extent (% RCA)0.00 Stress Defect Extent (% OLIVIA)2.60Rest Defect Extent (% OLIVIA)0.00Rev. Defect Extent (% OLIVIA)1.30 Other Information Quality:Good Risk Assessment: Low Risk Conclusion 1. No evidence of EKG changes with stress testing. 2. Normal perfusion at stress/rest. 3. Low risk study. 4. EF > 60%. Signed by : Rhiannon Medeiros, Electronically Approved : 01/03/2020 15:44:01
== END ==
LOC: NM 10:37
PROVIDERS: ATTEND Internal Medicine Cardiovascular Disease
DX: I10 Essential (primary) hypertension (principal)
CPT/HCPCS: 78452; 93017; A9500; J2785

== ENCOUNTER → 2020-01-04 | Outpatient (CLI) | payer BC, MEDICARE ==
[~2020-01-04] MED LIST changes: -REGADENOSON 0.4 MG/5 ML DISP.SYRIN. IV ONE
--- NOTE | 2020-01-05 08:17 | CARD ---
MR#: [id number] Date of Study: 01/04/2020 Ordering Physician: RHIANNON MEDEIROS, Referring Physician: RHIANNON MEDEIROS, Tech: Michelle Noe APPROVED REPORT EXAM: Two-dimensional and M-mode echocardiogram with Doppler and color Doppler. Other Information Quality : AverageHR: 58bpm INDICATION Dyspnea RISK FACTORS Hypertension Asthma / uses inhaler 2D DIMENSIONS RVDd2.6 (2.9-3.5cm)Left Atrium(2D)3.4 (1.6-4.0cm) IVSd1.0 (0.7-1.1cm)Aortic Root(2D)3.1 (2.0-3.7cm) LVDd4.2 (3.9-5.9cm)LVOT Diameter2.1 (1.8-2.4cm) PWd1.0 (0.7-1.1cm)LVDs2.9 (2.5-4.0cm) FS (%) 31.7 %SV48.0 ml LVEF(%)60.0 (>50%) Aortic Valve AoV Peak Solomon.116.5cm/sAoV VTI28.1cm AO Peak GR.5.4mmHgLVOT Peak Solomon.94.1cm/s LVOT VTI 23.36cmAO Mean GR.3mmHg NEHEMIAS (VMAX)2.37tf3ZVM (VTI)2.79cm2 Mitral Valve MV E Wexzqquy30.6cm/sMV DECEL [id number] MV A Taankwhn04.1cm/sMV JFT91ni E/A Ratio1.1MVA (PHT)3.94cm2 TDI E/Lateral E'13.8E/Medial E'12.5 Pulmonary Valve PV Peak Hmpzozyh95.0cm/sPV Peak Grad.2mmHg Tricuspid Valve TR P. Crmxccpl732pl/sRAP [id number] TR Peak Gr.33vhZyMAXW41szEk LEFT VENTRICLE The left ventricle is normal size. There is normal left ventricular wall thickness. The left ventricu lar systolic function is normal and the ejection fraction is within normal range. The Ejection Fracti on is 50-55%. There is normal LV segmental wall motion. Transmitral Doppler flow pattern is Grade II- pseudonormal filling dynamics. RIGHT VENTRICLE The right ventricle is normal size. There is normal right ventricular wall thickness. The right ventr icular systolic function is normal. ATRIA The left atrium size is normal. The right atrium size is normal. The interatrial septum is intact wit h no evidence for an atrial septal defect or patent foramen ovale as noted on 2-D or Doppler imaging. AORTIC VALVE The aortic valve is calcified but opens well. Doppler and Color Flow revealed no significant aortic r egurgitation. There is no significant aortic valvular stenosis. Calculated aortic valve area is 2.90 cm2 with maximum pressure gradient of 6 mmHg and mean pressure gradient of 4 mmHg. MITRAL VALVE The mitral valve is normal in structure and function. There is no evidence of mitral valve prolapse. There is no mitral valve stenosis. Doppler and Color Flow revealed no mitral valve regurgitation note d. TRICUSPID VALVE The tricuspid valve is normal in structure and function. Doppler and Color Flow revealed trace tricus pid regurgitation with an estimated PAP of 30 mmHg. There is no tricuspid valve stenosis. PULMONIC VALVE The pulmonic valve is not well visualized. Doppler and Color Flow revealed trace pulmonic valvular re gurgitation. There is no pulmonic valvular stenosis. GREAT VESSELS The aortic root is normal in size. The ascending aorta is normal in size. The IVC is normal in size a nd collapses >50% with inspiration. PERICARDIAL EFFUSION There is no evidence of significant pericardial effusion. Critical Notification Critical Value: No <Conclusion> The left ventricular systolic function is normal and the ejection fraction is within normal range. Th e Ejection Fraction is 50-55%. There is normal LV segmental wall motion. Signed by : Rhiannon Medeiros, Electronically Approved : 01/05/2020 08:16:56
== END ==
LOC: ECHO 08:51
PROVIDERS: ATTEND Internal Medicine Cardiovascular Disease
DX: I35.1 Nonrheumatic aortic (valve) insufficiency (principal)
CPT/HCPCS: 93306

== ENCOUNTER 2020-10-07 06:50 | Inpatient (IN) | payer BC, MEDICARE ==
[~2020-10-07] VITALS: Ht 160 cm; Wt 81.8 kg
[2020-10-07] MEDS ORDERED: ONDANSETRON PF 4 MG/2 ML VIAL. IVP ONE (07:30)
[2020-10-07] MEDS ORDERED: IV NORMAL SALINE 500ML BAG 500 ML IV ONE (07:30)
[2020-10-07] MEDS ORDERED: MORPHINE SULFATE 4 MG/ML INJ. IVP ONE (07:30)
--- NOTE | 2020-10-07 07:30 | PHYS DOC ---
Past Medical History Past Medical History: Depression, Hypertension Additional Past Medical Histor: HYPOGAMAGLOBULIN ANEMIA, SINUS INFECTIONS Past Surgical History: Cholecystectomy, Hysterectomy Additional Past Surgical Histo: BILAT SINUS SGRY, BILAT SHOULDER, Smoking Status: Never Smoker Alcohol Use: None Drug Use: None General Adult EDM: Chief Complaint: ABDOMINAL PAIN HPI: HPI: Patient is a 80 year old female with history HTN, depression, and previous surgical history of cholecystectomy and hysterectomy who presents with right lower quadrant pain. Started last night. Sharp. Comes in waves. Radiates to the right flank at times. Not associated with nausea/vomiting, diarrhea, or chills. Has been slightly constipated lately. No dysuria, urgency, or frequency. Thinks that if anything she is peeing less frequently than usual. Has never had similar pain. No history of kidney stones. No history of hernias. No history of SBO. Review of Systems: Review of Systems: Constitutional: Denies fever or chills. [] Eyes: Denies change in visual acuity. [] HENT: Denies nasal congestion or sore throat. [] Respiratory: Denies cough or shortness of breath. [] Cardiovascular: Denies chest pain or edema. [] GI: Reports right lower quadrant abdominal pain. No N/V, diarrhea. [] : Denies dysuria. Reports right flank pain [] Musculoskeletal: Denies back pain or joint pain. [] Integument: Denies rash. [] Neurologic: Denies headache, focal weakness or sensory changes. [] Endocrine: Denies polyuria or polydipsia. [] Lymphatic: Denies swollen glands. [] Psychiatric: Denies depression or anxiety. [] Heart Score: C/O Chest Pain: No Risk Factors: Risk Factors: DM, Current or recent (<one month) smoker, HTN, HLP, family history of CAD, obesity. Risk Scores: Score 0 - 3: 2.5% MACE over next 6 weeks - Discharge Home Score 4 - 6: 20.3% MACE over next 6 weeks - Admit for Clinical Observation Score 7 - 10: 72.7% MACE over next 6 weeks - Early Invasive Strategies Family History: Family History: No pertinent family history identified Allergies: Allergies: Allergies Coded Allergies Type Severity Reaction Last Updated Verified naproxen Allergy Intermediate 11/03/14 No Physical Exam: PE: Constitutional: No acute distress. Ambulates under her own power without d ifficulty. [] HENT: Normocephalic, atraumatic, bilateral external ears normal, oropharynx moist, no oral exudates, nose normal. [] Eyes: PERRLA, EOMI, conjunctiva normal, no discharge. [] Neck: Normal range of motion, no tenderness, supple, no stridor. [] Cardiovascular:Heart rate regular rhythm, no murmur [] Lungs & Thorax: Bilateral breath sounds clear to auscultation [] Abdomen: Soft, focal tenderness in the right lower quadrant. No rebound or guarding. [] Skin: Warm, dry, no erythema, no rash. [] Back: No tenderness, no CVA tenderness. [] Extremities: No tenderness, no cyanosis, no clubbing, ROM intact, no edema. [] Neurologic: Alert and oriented X 3, normal motor function, normal sensory function, no focal deficits noted. [] Psychologic: Affect normal, judgement normal, mood normal. [] Current Patient Data: Vital Signs: Vital Signs Date Time Temp Pulse Resp B/P (MAP) Pulse Ox O2 Delivery O2 Flow Rate FiO2 10/07/20 06:59 97.5 81 22 186/113 99 Room Air 97.5 EKG: EKG: [] Radiology/Procedures: Radiology/Procedures: CT abdomen/pelvis with IV contrast [] Impression: [facility] [address] [place], [place] [id number] IMAGING REPORT Signed PATIENT: SIRIA MEJIA ACCOUNT: [id number] : 1940 LOCATION: ER AGE: 80 SEX: F EXAM STATUS: REG ER ORD. PHYSICIAN: KEAGAN ONTIVEROS MD REASON: RLQ pain, radiates to flank PROCEDURE: CT ABD PELV W/ IV CONTRST ONLY CT STUDY OF THE ABDOMEN AND PELVIS WITH CONTRAST Clinical indications: Right lower quadrant abdominal pain which radiates to flank. TECHNIQUE: After IV infusion of 60 cc of Omnipaque 300, helical CT scanning of the abdomen and pelvis was performed. GI contrast was not administered. This may decrease the sensitivity to detect GI tract pathology. PQRS COMPLIANCE STATEMENT One or more of the following individualized dose reduction techniques were utilized for this study: 1. Automated exposure control 2. Adjustment of the mA and/or kV according to patient size 3. Use of iterative reconstruction technique COMPARISON: None available. FINDINGS: Small hepatic cysts are seen. The spleen is not enlarged. No focal enlargement of the pancreas is seen. The gallbladder is surgically absent. The extra hepatic bile duct is not abnormally distended given the patient's age and cholecystectomy. No adrenal mass is apparent. Bilateral renal cysts are seen which is an incidental finding. No further follow-up is needed. No hydronephrosis or hydroureter is seen and no urinary tract stone is apparent. Urinary bladder wall is smooth. Uterus is surgically absent. There is partial thrombosis of the right ovarian vein seen on axial series 2 and images 52-58 and coronal series 4 and images 26-29. No focal aneurysmal dilatation of the abdominal aorta is seen. The appendix is normal. Terminal ileum is unremarkable. Sigmoid diverticulosis is seen without diverticulitis. Mild fecal retention is seen throughout the colon. No obstructive bowel pattern is evident. No bowel wall thickening is seen. There is a moderate-sized hiatal hernia. No free intraperitoneal air or free fluid or mesenteric edema is seen. Bilateral lower lung zone atelectasis is seen. No lytic process is seen. Grade 1 anterolisthesis of L4-5 is seen secondary to facet arthropathy of L4-5. IMPRESSION: Sigmoid diverticulosis without diverticulitis. Partial right ovarian vein thrombosis. No adjacent inflammation is seen. This could be acute or chronic finding. The uterus is surgically absent. No ovarian mass or dominant cyst is seen. Moderate-sized hiatal hernia. Electronically signed by: Terry Davis MD (10/07/2020 9:41 AM) [id number] DICTATED and SIGNED BY: TERRY DAVIS MD DATE: 10/07/20 [id number] 0 Course & Med Decision Making: Course & Med Decision Making Pertinent Labs and Imaging studies reviewed. (See chart for details) Patient 80-year-old female with history of cholecystectomy, complete hysterectomy, HTN who presents with focal right lower quadrant pain since last night. Radiates towards the right flank at times. On arrival is afebrile hemodynamically stable. Overall generally well-appearing. Is focally tender in the right lower quadrant. We will obtain labs including CBC, CMP, UA as well as a CT abdomen/pelvis with IV contrast. Morphine, NS, and zofran as needed. 0729 CT shows a right ovarian vein thrombosis. Gynecology, Dr. Solares, consulted. States that we typically treat with anticoagulation. This is most common in the setting of recent delivery, surgery, or malignancy. Patient is obviously postmenopausal and has not had any recent surgeries. Has no known history of malignancy. Dr. Solares recommends admission to the hospital to start anticoagulation and for consideration of further work-up. [id number] Dragon Disclaimer: Dragverna Disclaimer: This electronic medical record was generated, in whole or in part, using a voice recognition dictation system. Departure Departure Impression: Primary Impression: Thrombosis of ovarian vein Disposition: ADMITTED INPATIENT Admitting Physician: ZAK (Dr. Lindo) Condition: STABLE Referrals: DAVID SANCHES NP (PCP) KEAGAN ONTIVEROS MD Oct 07, 2020 07:29
[2020-10-07 07:59] LABS: CALCIUM 9.4 mg/dL (8.5-10.1); CREATININE 1.2 mg/dL (0.6-1.0); GFR 43.1; POTASSIUM 4.1 mmol/L (3.5-5.1)
[2020-10-07 08:04] LABS: ALBUMIN 3.4 g/dL (3.4-5.0); TOTAL BILIRUBIN 0.4 mg/dL (0.2-1.0); TOTAL PROTEIN 6.8 g/dL (6.4-8.2)
[2020-10-07 08:06] LABS: BASO # 0.1 x10^3/uL (0.0-0.2); BASO % 1 % (0-3); EOS # 0.2 x10^3/uL (0.0-0.7); EOS % 5 % (0-3); HEMATOCRIT 39.4 % (36.0-47.0); HEMOGLOBIN 13.5 g/dL (12.0-15.5); LYMPH # 2.1 x10^3/uL (1.0-4.8); LYMPH % 45 % (24-48); MEAN CORPUSCULAR HEMOGLOBIN 31 pg (25-35); MEAN CORPUSCULAR HGB CONC 34 g/dL (31-37); MEAN CORPUSCULAR VOLUME 90 fL (79-100); MONO # 0.6 x10^3/uL (0.0-1.1); MONO % 13 % (0-9); NEUT # 1.6 x10^3/uL (1.8-7.7); NEUT % 35 % (31-73); PLATELET COUNT 214 x10^3/uL (140-400); RED BLOOD COUNT 4.36 x10^6/uL (3.50-5.40); WHITE BLOOD COUNT 4.6 x10^3/uL (4.0-11.0)
[2020-10-07] MEDS ORDERED: IOHEXOL 300 MG/ML 100ML VIAL. IV ONE (08:30)
[2020-10-07] MEDS ORDERED: CONTRAST GIVEN. MC PRN (08:45)
--- NOTE | 2020-10-07 09:43 | RAD ---
CT STUDY OF THE ABDOMEN AND PELVIS WITH CONTRAST Clinical indications: Right lower quadrant abdominal pain which radiates to flank. TECHNIQUE: After IV infusion of 60 cc of Omnipaque 300, helical CT scanning of the abdomen and pelvis was performed. GI contrast was not administered. This may decrease the sensitivity to detect GI trac t pathology. PQRS COMPLIANCE STATEMENT One or more of the following individualized dose reduction techniques were utilized for this study: 1. Automated exposure control 2. Adjustment of the mA and/or kV according to patient size 3. Use of iterative reconstruction technique COMPARISON: None available. FINDINGS: Small hepatic cysts are seen. The spleen is not enlarged. No focal enlargement of the pancr eas is seen. The gallbladder is surgically absent. The extra hepatic bile duct is not abnormally dist ended given the patient's age and cholecystectomy. No adrenal mass is apparent. Bilateral renal cysts are seen which is an incidental finding. No further follow-up is needed. No hydronephrosis or hydrou reter is seen and no urinary tract stone is apparent. Urinary bladder wall is smooth. Uterus is surgi juanjose absent. There is partial thrombosis of the right ovarian vein seen on axial series 2 and images 52-58 and coronal series 4 and images 26-29. No focal aneurysmal dilatation of the abdominal aorta i s seen. The appendix is normal. Terminal ileum is unremarkable. Sigmoid diverticulosis is seen withou t diverticulitis. Mild fecal retention is seen throughout the colon. No obstructive bowel pattern is evident. No bowel wall thickening is seen. There is a moderate-sized hiatal hernia. No free intraperi toneal air or free fluid or mesenteric edema is seen. Bilateral lower lung zone atelectasis is seen. No lytic process is seen. Grade 1 anterolisthesis of L4-5 is seen secondary to facet arthropathy of L 4-5. IMPRESSION: Sigmoid diverticulosis without diverticulitis. Partial right ovarian vein thrombosis. No adjacent inflammation is seen. This could be acute or chron ic finding. The uterus is surgically absent. No ovarian mass or dominant cyst is seen. Moderate-sized hiatal hernia. Electronically signed by: Bart Davis MD (10/07/2020 9:41 AM) [id number]
[2020-10-07 10:46] LABS: BILIRUBIN,URINE NEGATIVE (NEG); CLARITY,URINE CLEAR; COLOR,URINE YELLOW; NITRITE,URINE NEGATIVE (NEG); PROTEIN,URINE NEGATIVE (NEG-TRACE); UROBILINOGEN,URINE 0.2 mg/dL (0.2 mg/dL)
[2020-10-07 11:12] LABS: BACTERIA,URINE 0 /HPF (0-FEW); RBC,URINE 0 /HPF (0-2)
[2020-10-07] MEDS ORDERED: ACETAMINOPHEN 325 MG TABLET. PO PRN (11:15)
[2020-10-07] MEDS ORDERED: ONDANSETRON PF 4 MG/2 ML VIAL. IVP PRN (11:15)
[2020-10-07] MEDS ORDERED: ELECTROLYTE (NON-ICU) PROTOCOL. MC PRN (11:15)
[2020-10-07] MEDS ORDERED: HYDROmorphone 2 MG TABLET PO PRN (11:15)
[2020-10-07] MEDS ORDERED: LORazepam 0.5 MG TABLET PO PRN (11:15)
[2020-10-07] MEDS ORDERED: ZOLPIDEM 5 MG TABLET. PO PRN (11:15)
[2020-10-07] MEDS ORDERED: CALCIUM CARBONATE 500 MG TAB.CHEW PO PRN (11:15)
[2020-10-07] MEDS: METOPROLOL TART IMMED RELEASE 25 MG TABLET. PO SCH ×2 (12:00→21:00)
--- NOTE | 2020-10-07 12:27 | PDOC2 ---
CONSULT Date of Consult Date of Consult DATE: 10/07/20 TIME: 12:27 Reason for Consult Reason for Consult: Ovarian vein thrombosis History of Present Illness Reason for Visit: 80y who presented to the ER with RLQ pain. The pt states that it began two nights ago. When she was sitting her recliner she felt like something was moving on the inside. The next morning she was in incredible pain that last all day. She had attempted Tylenol with no relief. She presented to the ER with the RLQ pain that radiated to her right flank. In the ER a CT was performed revealing the following: Sigmoid diverticulosis without diverticulitis. Partial right ovarian vein thrombosis. No adjacent inflammation is seen. This could be acute or chronic finding. The uterus is surgically absent. No ovarian mass or dominant cyst is seen. Moderate-sized hiatal hernia. The pts pain is still present. She denies any other symptoms. She denies any changes in bowel habits. Denies any bloody stools. Her labs in the ER (CBC, UA) all returned nml. She has not symptoms either. Explained that often this condition was precipitated by some other event (ie, surgery, delivery, etc). The pt has had no recent surgeries. She states that she was recently txed for a sinus infection about 2 months ago with Augmentin and prednisone. She states that about 20 yrs ago she was txed on a regular basis for about 8 yrs for sinus infections. She had sinus surgery and ultimately they discovered that her office had mold in it. She had a AREN/BSO about 38yrs ago. They performed if for endometriosis. The pt states prior to her hysterectomy she was already experiencing hot flashes and night sweats. She was never on ERT/HRT. PMH: HTN, sinus, depressions, hypoglobulinemia PSH: Bilateral shoulder surgery, samantha, tonsils, AREN/BSO Meds: Prozac, Nexium, Tums All: Alieve OBHx: 2 x TSVD Wet Cotton Feeder: LMP ~38yrs ago No h/o ERT/HRT Menarche at 15yo, regular cycles, menopause at 42yo SH: no tob, no EtOH FH: CA, CAD Current Problem List Problem List Problems Medical Problems: (1) Thrombosis of ovarian vein Status: Acute Current Medications Current Medications Current Medications Morphine Sulfate (Morphine Sulfate) 4 mg 1X ONCE IVP Last administered on 10/07/20at 07:46; Start 10/07/20 at 07:30; Stop 10/07/20 at 07:31; Status DC Ondansetron HCl (Zofran) 4 mg PRN 1X ONCE IVP Last administered on 10/07/20at 07:45; Start 10/07/20 at 07:30; Stop 10/07/20 at 07:31; Status DC Sodium Chloride 500 ml @ 500 mls/hr 1X ONCE IV Last administered on 10/07/20at 07:30; Start 10/07/20 at 07:30; Stop 10/07/20 at 08:29; Status DC Iohexol (Omnipaque 300 Mg/ml) 60 ml 1X ONCE IV Last administered on 10/07/20at 08:59; Start 10/07/20 at 08:30; Stop 10/07/20 at 08:31; Status DC Info (CONTRAST GIVEN -- Rx MONITORING) 1 each PRN DAILY PRN MC SEE COMMENTS; Start 10/07/20 at 08:45; Stop 10/09/20 at 08:44 Enoxaparin Sodium (Lovenox Per Pharmacy Treatment Dosing) 1 each PRN DAILY PRN MC SEE COMMENTS; Start 10/07/20 at 11:15 Enoxaparin Sodium (Lovenox 80mg Syringe) 80 mg Q12HR SQ ; Start 10/07/20 at 11:30 Ondansetron HCl (Zofran) 4 mg PRN Q6HRS PRN IVP NAUSEA/VOMITING; Start 10/07/20 at 11:15 Calcium Carbonate/ Glycine (Tums) 500 mg PRN Q3HRS PRN PO UPSET STOMACH; Start 10/07/20 at 11:15 Zolpidem Tartrate (Ambien) 5 mg PRN QHS PRN PO INSOMNIA, MAY REPEAT IN 1HR; Start 10/07/20 at 11:15 Info (Non-Icu Electrolyte Protocol) 1 ea PRN DAILY PRN MC SEE COMMENTS; Start 10/07/20 at 11:15 Oxycodone/ Acetaminophen (Percocet 5/325) 1 tab PRN Q4HRS PRN PO MILD PAIN, 1ST CHOICE; Start 10/07/20 at 11:15 Oxycodone/ Acetaminophen (Percocet 5/325) 2 tab PRN Q4HRS PRN PO MODERATE PAIN, SEVERE PAIN; Start 10/07/20 at 11:15 Hydromorphone HCl (Dilaudid) 2 mg PRN Q4HRS PRN PO MILD PAIN, MODERATE PAIN; Start 10/07/20 at 11:15 Hydromorphone HCl (Dilaudid) 4 mg PRN Q4HRS PRN PO SEVERE PAIN, 2ND CHOICE; Start 10/07/20 at 11:15 Acetaminophen (Tylenol) 650 mg PRN Q6HRS PRN PO Headaches, Temp > 101.5F; Start 10/07/20 at 11:15 Senna/Docusate Sodium (Senna Plus) 1 tab BID PO ; Start 10/07/20 at 21:00 Amlodipine Besylate (Norvasc) 10 mg DAILY PO ; Start 10/07/20 at 12:00 Atorvastatin Calcium (Lipitor) 20 mg QHS PO ; Start 10/07/20 at 21:00 Lorazepam (Ativan) 0.5 mg PRN Q8HRS PRN PO ANXIETY / AGITATION; Start 10/07/20 at 11:15 Metoprolol Tartrate (Lopressor) 25 mg BID PO ; Start 10/07/20 at 12:00 Fluoxetine HCl (PROzac) 40 mg DAILY PO ; Start 10/07/20 at 12:00 Active Scripts Active Atorvastatin Calcium 20 Mg Tablet 20 Mg PO QHS 30 Days Metoprolol Tartrate 25 Mg Tablet 25 Mg PO BID 30 Days Amlodipine Besylate 10 Mg Tablet 10 Mg PO DAILY 30 Days Ativan (Lorazepam) 0.5 Mg Tablet 0.5 Mg PO PRN Q8HRS PRN 3 Days Reported Prozac (Fluoxetine Hcl) 40 Mg Capsule 1 Cap PO DAILY Allergies Allergies: Coded Allergies: naproxen (Unverified Allergy, Intermediate, 11/03/14) Physical Exam General: Alert, Oriented X3, Cooperative, No acute distress HEENT: PERRLA, Mucous membr. moist/pink Lungs: Clear to auscultation, Normal air movement Heart: Regular rate, Normal S1, Normal S2, No murmurs Abdomen: Normal bowel sounds, Soft, No tenderness, No hepatosplenomegaly, No masses Extremities: No clubbing, No cyanosis, No edema, Normal pulses, No tender ness/swelling Skin: No rashes, No breakdown Neuro: Normal gait, Normal speech, Normal tone, Sensation intact, Reflexes 2+ Psych/Mental Status: Mental status NL, Mood NL Vitals VITALS Vital Signs Date Time Temp Pulse Resp B/P (MAP) Pulse Ox O2 Delivery O2 Flow Rate FiO2 10/07/20 08:21 77 14 199/83 (121) 99 Room Air 10/07/20 06:59 97.5 97.5 Labs Labs Laboratory Tests Test 10/07/20 07:30 10/07/20 10:28 White Blood Count 4.6 x10^3/uL (4.0-11.0) Red Blood Count 4.36 x10^6/uL (3.50-5.40) Hemoglobin 13.5 g/dL (12.0-15.5) Hematocrit 39.4 % (36.0-47.0) Mean Corpuscular Volume 90 fL (79-100) Mean Corpuscular Hemoglobin 31 pg (25-35) Mean Corpuscular Hemoglobin Concent 34 g/dL (31-37) Red Cell Distribution Width 14.0 % (11.5-14.5) Platelet Count 214 x10^3/uL (140-400) Neutrophils (%) (Auto) 35 % (31-73) Lymphocytes (%) (Auto) 45 % (24-48) Monocytes (%) (Auto) 13 % (0-9) Eosinophils (%) (Auto) 5 % (0-3) Basophils (%) (Auto) 1 % (0-3) Neutrophils # (Auto) 1.6 x10^3/uL (1.8-7.7) Lymphocytes # (Auto) 2.1 x10^3/uL (1.0-4.8) Monocytes # (Auto) 0.6 x10^3/uL (0.0-1.1) Eosinophils # (Auto) 0.2 x10^3/uL (0.0-0.7) Basophils # (Auto) 0.1 x10^3/uL (0.0-0.2) Sodium Level 141 mmol/L (136-145) Potassium Level 4.1 mmol/L (3.5-5.1) Chloride Level 106 mmol/L (98-107) Carbon Dioxide Level 24 mmol/L (21-32) Anion Gap 11 (6-14) Blood Urea Nitrogen 19 mg/dL (7-20) Creatinine 1.2 mg/dL (0.6-1.0) Estimated GFR (Cockcroft-Gault) 43.1 BUN/Creatinine Ratio 16 (6-20) Glucose Level 92 mg/dL (70-99) Calcium Level 9.4 mg/dL (8.5-10.1) Total Bilirubin 0.4 mg/dL (0.2-1.0) Aspartate Amino Transf (AST/SGOT) 22 U/L (15-37) Alanine Aminotransferase (ALT/SGPT) 24 U/L (14-59) Alkaline Phosphatase 68 U/L (46-116) Total Protein 6.8 g/dL (6.4-8.2) Albumin 3.4 g/dL (3.4-5.0) Albumin/Globulin Ratio 1.0 (1.0-1.7) Urine Collection Type Void Urine Color Yellow Urine Clarity Clear Urine pH 6.0 (<5.0-8.0) Urine Specific [place] 1.025 (1.000-1.030) Urine Protein Negative mg/dL (NEG-TRACE) Urine Glucose (UA) Negative mg/dL (NEG) Urine Ketones (Stick) Negative mg/dL (NEG) Urine Blood Negative (NEG) Urine Nitrite Negative (NEG) Urine Bilirubin Negative (NEG) Urine Urobilinogen Dipstick 0.2 mg/dL (0.2 mg/dL) Urine Leukocyte Esterase Trace (NEG) Urine RBC 0 /HPF (0-2) Urine WBC 5-10 /HPF (0-4) Urine Squamous Epithelial Cells Mod /LPF Urine Bacteria 0 /HPF (0-FEW) Laboratory Tests Test 10/07/20 07:30 10/07/20 10:28 White Blood Count 4.6 x10^3/uL (4.0-11.0) Red Blood Count 4.36 x10^6/uL (3.50-5.40) Hemoglobin 13.5 g/dL (12.0-15.5) Hematocrit 39.4 % (36.0-47.0) Mean Corpuscular Volume 90 fL (79-100) Mean Corpuscular Hemoglobin 31 pg (25-35) Mean Corpuscular Hemoglobin Concent 34 g/dL (31-37) Red Cell Distribution Width 14.0 % (11.5-14.5) Platelet Count 214 x10^3/uL (140-400) Neutrophils (%) (Auto) 35 % (31-73) Lymphocytes (%) (Auto) 45 % (24-48) Monocytes (%) (Auto) 13 % (0-9) Eosinophils (%) (Auto) 5 % (0-3) Basophils (%) (Auto) 1 % (0-3) Neutrophils # (Auto) 1.6 x10^3/uL (1.8-7.7) Lymphocytes # (Auto) 2.1 x10^3/uL (1.0-4.8) Monocytes # (Auto) 0.6 x10^3/uL (0.0-1.1) Eosinophils # (Auto) 0.2 x10^3/uL (0.0-0.7) Basophils # (Auto) 0.1 x10^3/uL (0.0-0.2) Sodium Level 141 mmol/L (136-145) Potassium Level 4.1 mmol/L (3.5-5.1) Chloride Level 106 mmol/L (98-107) Carbon Dioxide Level 24 mmol/L (21-32) Anion Gap 11 (6-14) Blood Urea Nitrogen 19 mg/dL (7-20) Creatinine 1.2 mg/dL (0.6-1.0) Estimated GFR (Cockcroft-Gault) 43.1 BUN/Creatinine Ratio 16 (6-20) Glucose Level 92 mg/dL (70-99) Calcium Level 9.4 mg/dL (8.5-10.1) Total Bilirubin 0.4 mg/dL (0.2-1.0) Aspartate Amino Transf (AST/SGOT) 22 U/L (15-37) Alanine Aminotransferase (ALT/SGPT) 24 U/L (14-59) Alkaline Phosphatase 68 U/L (46-116) Total Protein 6.8 g/dL (6.4-8.2) Albumin 3.4 g/dL (3.4-5.0) Albumin/Globulin Ratio 1.0 (1.0-1.7) Urine Collection Type Void Urine Color Yellow Urine Clarity Clear Urine pH 6.0 (<5.0-8.0) Urine Specific [place] 1.025 (1.000-1.030) Urine Protein Negative mg/dL (NEG-TRACE) Urine Glucose (UA) Negative mg/dL (NEG) Urine Ketones (Stick) Negative mg/dL (NEG) Urine Blood Negative (NEG) Urine Nitrite Negative (NEG) Urine Bilirubin Negative (NEG) Urine Urobilinogen Dipstick 0.2 mg/dL (0.2 mg/dL) Urine Leukocyte Esterase Trace (NEG) Urine RBC 0 /HPF (0-2) Urine WBC 5-10 /HPF (0-4) Urine Squamous Epithelial Cells Mod /LPF Urine Bacteria 0 /HPF (0-FEW) Assessment/Plan Assessment/Plan Assessment: 80y who presented to the ER with RLQ pain Recommendation: 1.) Ovarian vein thrombosis - a rare condition that has been associated with the period, malignancy, abdominal and pelvic surgery, pelvic inflammatory disease, and inflammatory bowel disease. She does not have a clear incident event for this finding. Based on age concerns of malignancy would be the most likely cause, but she has no symptoms for that. Tx for ovarian vein thrombosis is debatable as well. There was no statistically significant correlation found between treatment and no treatment in terms of overall outcomes for patients. Since the pt is symptomatic (pain) anticoagulation therapy would be reasonable. Resolution of ovarian vein thrombosis has been documented after only 7 to 14 days of therapy. Others have shown that ovarian vein thrombosis may not resolve with short anticoagulation therapy, and 3 to 6 months of anticoagulation is indicated until there is radiologically confirmed resolution of the thrombus. 2.) RLQ pain pain control per primary team 3.) H/o AREN/BSO 4.) Menopause asx, no h/o ERT/HRT 5.) HTN typically reports does not need meds 6.) Hiatal hernia 7.) Hypoglobulinemia per primary team 8.) Sigmoid diverticulosis w/o diverticulitis 9.) Will cont to follow EMMA JENSEN MD Oct 07, 2020 12:27
[2020-10-07] MEDS: oxyCODONE/APAP 5/325 1 TAB TABLET PO PRN ×3 (13:06→21:39)
[2020-10-07] MEDS: FLUoxetine HCL 20 MG CAPSULE PO SCH (13:06)
--- NOTE | 2020-10-07 15:11 | PDOC1 ---
History and Physical Date of Service: DOS: DATE: 10/07/20 TIME: 15:03 Chief Complaint: Problems: (1) HTN (hypertension) (2) Hyperlipidemia (3) Thrombosis of ovarian vein Chief Complain: Pelvic Pain History of Present Illness: HPI: Patient is a 80-year-old female who presented to the emergency room today due to 2-day history of right lower quadrant pain. Patient reports that 2 nights ago she was sitting at home and had this acute onset right lower quadrant pain. The pain was radiating to her flank. Initially she tried to discuss sleep but cannot due to the pain and had tried Tylenol with some relief. She was in pain throughout the entire day yesterday and eventually presented this morning not being able to tolerate the pain. In the emergency room CT scan showed a right ovarian vein thrombosis, unknown if acute or chronic. Otherwise overall unremarkable. Patient reports that 30 to 40 years ago she had a hysterectomy due to heavy menses. She was under the assumption her ovaries were removed at the time as well. Patient denies any new medications. Is denying headache, vision changes, dizziness, fever, chest pain, shortness of breath, joint pain. Past Medical/Surgical History: PMH/PSH: Hypertension, hyperlipidemia; status post total hysterectomy Allergies: Allergies: Coded Allergies: naproxen (Unverified Allergy, Intermediate, 11/03/14) Family History: Family History: CAD Social History: Social History: Denies alcohol tobacco drug use Current Medications: Current Medications Current Medications Morphine Sulfate (Morphine Sulfate) 4 mg 1X ONCE IVP Last administered on 10/07/20at 07:46; Start 10/07/20 at 07:30; Stop 10/07/20 at 07:31; Status DC Ondansetron HCl (Zofran) 4 mg PRN 1X ONCE IVP Last administered on 10/07/20at 07:45; Start 10/07/20 at 07:30; Stop 10/07/20 at 07:31; Status DC Sodium Chloride 500 ml @ 500 mls/hr 1X ONCE IV Last administered on 10/07/20at 07:30; Start 10/07/20 at 07:30; Stop 10/07/20 at 08:29; Status DC Iohexol (Omnipaque 300 Mg/ml) 60 ml 1X ONCE IV Last administered on 10/07/20at 08:59; Start 10/07/20 at 08:30; Stop 10/07/20 at 08:31; Status DC Info (CONTRAST GIVEN -- Rx MONITORING) 1 each PRN DAILY PRN MC SEE COMMENTS; Start 10/07/20 at 08:45; Stop 10/09/20 at 08:44 Enoxaparin Sodium (Lovenox Per Pharmacy Treatment Dosing) 1 each PRN DAILY PRN MC SEE COMMENTS; Start 10/07/20 at 11:15 Enoxaparin Sodium (Lovenox 80mg Syringe) 80 mg Q12HR SQ ; Start 10/07/20 at 11:30 Ondansetron HCl (Zofran) 4 mg PRN Q6HRS PRN IVP NAUSEA/VOMITING; Start 10/07/20 at 11:15 Calcium Carbonate/ Glycine (Tums) 500 mg PRN Q3HRS PRN PO UPSET STOMACH; Start 10/07/20 at 11:15 Zolpidem Tartrate (Ambien) 5 mg PRN QHS PRN PO INSOMNIA, MAY REPEAT IN 1HR; Start 10/07/20 at 11:15 Info (Non-Icu Electrolyte Protocol) 1 ea PRN DAILY PRN MC SEE COMMENTS; Start 10/07/20 at 11:15 Oxycodone/ Acetaminophen (Percocet 5/325) 1 tab PRN Q4HRS PRN PO MILD PAIN, 1ST CHOICE; Start 10/07/20 at 11:15 Oxycodone/ Acetaminophen (Percocet 5/325) 2 tab PRN Q4HRS PRN PO MODERATE PAIN, SEVERE PAIN Last administered on 10/07/20at 13:06; Start 10/07/20 at 11:15 Hydromorphone HCl (Dilaudid) 2 mg PRN Q4HRS PRN PO MILD PAIN, MODERATE PAIN; Start 10/07/20 at 11:15 Hydromorphone HCl (Dilaudid) 4 mg PRN Q4HRS PRN PO SEVERE PAIN, 2ND CHOICE; Start 10/07/20 at 11:15 Acetaminophen (Tylenol) 650 mg PRN Q6HRS PRN PO Headaches, Temp > 101.5F; St art 10/07/20 at 11:15 Senna/Docusate Sodium (Senna Plus) 1 tab BID PO ; Start 10/07/20 at 21:00 Amlodipine Besylate (Norvasc) 10 mg DAILY PO Last administered on 10/07/20at 13:05; Start 10/07/20 at 12:00 Atorvastatin Calcium (Lipitor) 20 mg QHS PO ; Start 10/07/20 at 21:00 Lorazepam (Ativan) 0.5 mg PRN Q8HRS PRN PO ANXIETY / AGITATION; Start 10/07/20 at 11:15 Metoprolol Tartrate (Lopressor) 25 mg BID PO ; Start 10/07/20 at 12:00 Fluoxetine HCl (PROzac) 40 mg DAILY PO Last administered on 10/07/20at 13:06; Start 10/07/20 at 12:00 Active Scripts Active Atorvastatin Calcium 20 Mg Tablet 20 Mg PO QHS 30 Days Metoprolol Tartrate 25 Mg Tablet 25 Mg PO BID 30 Days Amlodipine Besylate 10 Mg Tablet 10 Mg PO DAILY 30 Days Ativan (Lorazepam) 0.5 Mg Tablet 0.5 Mg PO PRN Q8HRS PRN 3 Days Reported Prozac (Fluoxetine Hcl) 40 Mg Capsule 1 Cap PO DAILY ROS: Review of Systems Review of System Negative unless noted in HPI Physical Exam: Vital Signs: Vital Signs Date Time Temp Pulse Resp B/P (MAP) Pulse Ox O2 Delivery O2 Flow Rate FiO2 10/07/20 13:05 71 161/70 10/07/20 08:21 14 99 Room Air 10/07/20 06:59 97.5 97.5 Physcial Exam: GEN: Mild distress HEENT: Normal cephalic, atraumatic, external auditory canals are patent EYES: Extraocular muscles are intact, pupil are equally round and reactive to light and accommodation MUSCULOSKELETAL: Well developed , well nourished, good range of motion HEMATOPOIETIC: No bruising NECK: Supple, no JVD, no thyromegaly was noted LUNGS: Clear to auscultation in all lung alexander without rhonchi or wheezing HEART: RRR, S1, S2 present. Peripheral pulses intact, no obvious murmurs noted ABDOMEN: Tenderness in right lower quadrant with tenderness persistent around to her right flank also. EXTREMITIES: Without clubbing, cyanosis, or edema. Pedal pulses intact. Negative Homans sign NEUROLOGIC: Normal speech and tone. A&O x 3, moves all extremities, no obvious focal deficits PSYCHIATRIC: Normal affect, normal mood. Stable SKIN: No ulcerations or rashes, good skin turgor, no jaundice VASCULAR: Good capillary refill, neurovascular bundle appears to be intact Labs: Labs: Laboratory Tests Test 10/07/20 07:30 10/07/20 10:28 White Blood Count 4.6 x10^3/uL (4.0-11.0) Red Blood Count 4.36 x10^6/uL (3.50-5.40) Hemoglobin 13.5 g/dL (12.0-15.5) Hematocrit 39.4 % (36.0-47.0) Mean Corpuscular Volume 90 fL (79-100) Mean Corpuscular Hemoglobin 31 pg (25-35) Mean Corpuscular Hemoglobin Concent 34 g/dL (31-37) Red Cell Distribution Width 14.0 % (11.5-14.5) Platelet Count 214 x10^3/uL (140-400) Neutrophils (%) (Auto) 35 % (31-73) Lymphocytes (%) (Auto) 45 % (24-48) Monocytes (%) (Auto) 13 % (0-9) Eosinophils (%) (Auto) 5 % (0-3) Basophils (%) (Auto) 1 % (0-3) Neutrophils # (Auto) 1.6 x10^3/uL (1.8-7.7) Lymphocytes # (Auto) 2.1 x10^3/uL (1.0-4.8) Monocytes # (Auto) 0.6 x10^3/uL (0.0-1.1) Eosinophils # (Auto) 0.2 x10^3/uL (0.0-0.7) Basophils # (Auto) 0.1 x10^3/uL (0.0-0.2) Sodium Level 141 mmol/L (136-145) Potassium Level 4.1 mmol/L (3.5-5.1) Chloride Level 106 mmol/L (98-107) Carbon Dioxide Level 24 mmol/L (21-32) Anion Gap 11 (6-14) Blood Urea Nitrogen 19 mg/dL (7-20) Creatinine 1.2 mg/dL (0.6-1.0) Estimated GFR (Cockcroft-Gault) 43.1 BUN/Creatinine Ratio 16 (6-20) Glucose Level 92 mg/dL (70-99) Calcium Level 9.4 mg/dL (8.5-10.1) Total Bilirubin 0.4 mg/dL (0.2-1.0) Aspartate Amino Transf (AST/SGOT) 22 U/L (15-37) Alanine Aminotransferase (ALT/SGPT) 24 U/L (14-59) Alkaline Phosphatase 68 U/L (46-116) Total Protein 6.8 g/dL (6.4-8.2) Albumin 3.4 g/dL (3.4-5.0) Albumin/Globulin Ratio 1.0 (1.0-1.7) Urine Collection Type Void Urine Color Yellow Urine Clarity Clear Urine pH 6.0 (<5.0-8.0) Urine Specific [place] 1.025 (1.000-1.030) Urine Protein Negative mg/dL (NEG-TRACE) Urine Glucose (UA) Negative mg/dL (NEG) Urine Ketones (Stick) Negative mg/dL (NEG) Urine Blood Negative (NEG) Urine Nitrite Negative (NEG) Urine Bilirubin Negative (NEG) Urine Urobilinogen Dipstick 0.2 mg/dL (0.2 mg/dL) Urine Leukocyte Esterase Trace (NEG) Urine RBC 0 /HPF (0-2) Urine WBC 5-10 /HPF (0-4) Urine Squamous Epithelial Cells Mod /LPF Urine Bacteria 0 /HPF (0-FEW) Laboratory Tests Test 10/07/20 07:30 10/07/20 10:28 White Blood Count 4.6 x10^3/uL (4.0-11.0) Red Blood Count 4.36 x10^6/uL (3.50-5.40) Hemoglobin 13.5 g/dL (12.0-15.5) Hematocrit 39.4 % (36.0-47.0) Mean Corpuscular Volume 90 fL (79-100) Mean Corpuscular Hemoglobin 31 pg (25-35) Mean Corpuscular Hemoglobin Concent 34 g/dL (31-37) Red Cell Distribution Width 14.0 % (11.5-14.5) Platelet Count 214 x10^3/uL (140-400) Neutrophils (%) (Auto) 35 % (31-73) Lymphocytes (%) (Auto) 45 % (24-48) Monocytes (%) (Auto) 13 % (0-9) Eosinophils (%) (Auto) 5 % (0-3) Basophils (%) (Auto) 1 % (0-3) Neutrophils # (Auto) 1.6 x10^3/uL (1.8-7.7) Lymphocytes # (Auto) 2.1 x10^3/uL (1.0-4.8) Monocytes # (Auto) 0.6 x10^3/uL (0.0-1.1) Eosinophils # (Auto) 0.2 x10^3/uL (0.0-0.7) Basophils # (Auto) 0.1 x10^3/uL (0.0-0.2) Sodium Level 141 mmol/L (136-145) Potassium Level 4.1 mmol/L (3.5-5.1) Chloride Level 106 mmol/L (98-107) Carbon Dioxide Level 24 mmol/L (21-32) Anion Gap 11 (6-14) Blood Urea Nitrogen 19 mg/dL (7-20) Creatinine 1.2 mg/dL (0.6-1.0) Estimated GFR (Cockcroft-Gault) 43.1 BUN/Creatinine Ratio 16 (6-20) Glucose Level 92 mg/dL (70-99) Calcium Level 9.4 mg/dL (8.5-10.1) Total Bilirubin 0.4 mg/dL (0.2-1.0) Aspartate Amino Transf (AST/SGOT) 22 U/L (15-37) Alanine Aminotransferase (ALT/SGPT) 24 U/L (14-59) Alkaline Phosphatase 68 U/L (46-116) Total Protein 6.8 g/dL (6.4-8.2) Albumin 3.4 g/dL (3.4-5.0) Albumin/Globulin Ratio 1.0 (1.0-1.7) Urine Collection Type Void Urine Color Yellow Urine Clarity Clear Urine pH 6.0 (<5.0-8.0) Urine Specific [place] 1.025 (1.000-1.030) Urine Protein Negative mg/dL (NEG-TRACE) Urine Glucose (UA) Negative mg/dL (NEG) Urine Ketones (Stick) Negative mg/dL (NEG) Urine Blood Negative (NEG) Urine Nitrite Negative (NEG) Urine Bilirubin Negative (NEG) Urine Urobilinogen Dipstick 0.2 mg/dL (0.2 mg/dL) Urine Leukocyte Esterase Trace (NEG) Urine RBC 0 /HPF (0-2) Urine WBC 5-10 /HPF (0-4) Urine Squamous Epithelial Cells Mod /LPF Urine Bacteria 0 /HPF (0-FEW) Assessment/Plan Assessment/Plan Patient is an 80-year-old female presented today due to 2-day history of right lower quadrant pain 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 -CA-125 ordered -Patient may need further metastatic work-up -Pain control -Home meds ordered as indicated -Lovenox will serve as DVT prophylaxis -Regular diet Justifications for Admission Other Justification ZION PETERSON MD Oct 07, 2020 15:11
[2020-10-07 17:39] VITALS: BP 118/49
[2020-10-07] MEDS ORDERED: ATORVASTATIN CALCIUM 20 MG TABLET PO SCH (21:00)
[2020-10-07 21:15] VITALS: BP 126/76
[2020-10-07] MEDS: SENNOSIDES/DOCUSATE 8.6/50MG TABLET. PO SCH (21:39)
[2020-10-08] MEDS: oxyCODONE/APAP 5/325 1 TAB TABLET PO PRN ×5 (03:00→12:35)
[2020-10-08 03:04] VITALS: BP 117/70
[2020-10-08 07:52] VITALS: BP 123/70
[2020-10-08] MEDS: SENNOSIDES/DOCUSATE 8.6/50MG TABLET. PO SCH (08:49)
[2020-10-08] MEDS: FLUoxetine HCL 20 MG CAPSULE PO SCH (08:52)
--- NOTE | 2020-10-08 09:00 | NUR ---
pt refused to take meteprolol states she has not taken any this year after she ran out at home. Has not had a bm for 4 days.
[2020-10-08 09:20] LABS: HEMATOCRIT 36.3 % (36.0-47.0); HEMOGLOBIN 12.2 g/dL (12.0-15.5); RED BLOOD COUNT 3.96 x10^6/uL (3.50-5.40); RED CELL DISTRIBUTION WIDTH 14.1 % (11.5-14.5); WHITE BLOOD COUNT 5.4 x10^3/uL (4.0-11.0)
[2020-10-08 09:34] LABS: CALCIUM 8.9 mg/dL (8.5-10.1); CREATININE 1.3 mg/dL (0.6-1.0); GFR 39.3; POTASSIUM 4.7 mmol/L (3.5-5.1)
--- NOTE | 2020-10-08 11:03 | PDOC ---
[employer] PROGRESS NOTE Date of Service: DATE: 10/08/20 TIME: 11:02 Subjective: Pt reports that the pain is subcostal on the right. The pain is better with meds, but still present. The pt reported to the nurse that she has not had a BM for the last 4 days Objective: Vital Signs: Vital Signs Date Time Temp Pulse Resp B/P (MAP) Pulse Ox O2 Delivery O2 Flow Rate FiO2 10/07/20 07:51 70 14 171/100 (123) 99 Room Air 10/07/20 17:39 97.7 97.7 Vital Signs Date Time Temp Pulse Resp B/P (MAP) Pulse Ox O2 Delivery O2 Flow Rate FiO2 10/08/20 08:50 79 123/70 10/08/20 08:20 16 Room Air 10/08/20 07:52 97.9 96 97.9 Labs: Laboratory Tests Test 10/07/20 16:53 10/08/20 08:50 SARS-CoV-2 Antigen (Rapid) Negative (NEGATIVE) White Blood Count 5.4 x10^3/uL (4.0-11.0) Red Blood Count 3.96 x10^6/uL (3.50-5.40) Hemoglobin 12.2 g/dL (12.0-15.5) Hematocrit 36.3 % (36.0-47.0) Mean Corpuscular Volume 92 fL (79-100) Mean Corpuscular Hemoglobin 31 pg (25-35) Mean Corpuscular Hemoglobin Concent 34 g/dL (31-37) Red Cell Distribution Width 14.1 % (11.5-14.5) Platelet Count 194 x10^3/uL (140-400) Sodium Level 138 mmol/L (136-145) Potassium Level 4.7 mmol/L (3.5-5.1) Chloride Level 105 mmol/L (98-107) Carbon Dioxide Level 28 mmol/L (21-32) Anion Gap 5 (6-14) L Blood Urea Nitrogen 19 mg/dL (7-20) Creatinine 1.3 mg/dL (0.6-1.0) H Estimated GFR (Cockcroft-Gault) 39.3 Glucose Level 104 mg/dL (70-99) H Calcium Level 8.9 mg/dL (8.5-10.1) Laboratory Tests 10/08/20 08:50 Laboratory Tests 8/16/21 08:50 Laboratory Tests 10/08/20 08:50 Physical Exam: GENERAL: No apparent distress. Alert and oriented. HEENT: Head normocephalic, atraumatic. NECK: Supple LUNGS: Clear to auscultation. HEART: RRR, S1, S2 present, pulses intact ABDOMEN: Soft, positive bowel sounds. EXTREMITIES: No cyanosis or edema. NEUROLOGIC: Normal speech, normal tone PSYCHIATRIC: Normal affect, normal mood. SKIN: No ulceration. Assessment & Plan: A/P 80y who presented to the ER with RLQ pain 1.) Ovarian vein thrombosis was txing based on thrombosis being symptomatic. Based on location of pain now, unclear if pain and thrombosis related. Will consider 7 to 14 days of therapy. If pain improves does not need to be inpt for entire course. 2.) Right subcostal / RLQ pain pain is more subcostal now, pain control per primary team 3.) Constipation per primary team 4.) H/o AREN/BSO 5.) Menopause asx, no h/o ERT/HRT 6.) HTN typically reports does not need meds 7.) Hiatal hernia 8.) Hypoglobulinemia per primary team 9.) Sigmoid diverticulosis w/o diverticulitis 10.) Will cont to follow EMMA JENSEN MD Oct 08, 2020 11:03
[2020-10-08 12:00] VITALS: BP 121/70
--- NOTE | 2020-10-08 13:16 | PDOC ---
[employer] PROGRESS NOTE Date of Service DOS: DATE: 10/08/20 TIME: 13:11 Chief Complaint Chief Complaint Right lower quadrant pain secondary to ovarian vein thrombosis hypertension hyperlipidemia -CT scan emergency room showed right ovarian vein thrombosis -Gynecology was consulted at that time --> suggested that anticoagulation may or may not be beneficial; since she is in pain starting weight-based Lovenox twice daily. -CA-125 ordered -Patient may need further metastatic work-up -Pain control -Home meds ordered as indicated -Lovenox will serve as DVT prophylaxis -Regular diet History of Present Illness History of Present Illness Patient is a 80-year-old female who presented to the emergency room today due to 2-day history of right lower quadrant pain. Patient reports that 2 nights ago she was sitting at home and had this acute onset right lower quadrant pain. The pain was radiating to her flank. Initially she tried to discuss sleep but cannot due to the pain and had tried Tylenol with some relief. She was in pain throughout the entire day yesterday and eventually presented this morning not being able to tolerate the pain. In the emergency room CT scan showed a right ovarian vein thrombosis, unknown if acute or chronic. Otherwise overall unremarkable. Patient reports that 30 to 40 years ago she had a hysterectomy due to heavy menses. She was under the assumption her ovaries were removed at the time as well. Patient denies any new medications. Is denying headache, vision changes, dizziness, fever, chest pain, shortness of breath, joint pain. 10/08/2020: Afebrile. No admits to moderate right lower extremity pain, improved with medication. Per DIVISION ORDER ANALYST, no surgical intervention planned and recommended continued anticoagulation and pain control. Discussed with patient and family at bedside about options of anticoagulation, including continue Lovenox 1 mg/kg twice daily, warfarin, or DOAC. Patient opted to discharge home on DOAC. Discussed symptom resolution may take up to 21 days. Greater than 30 minutes spent managing discharge this patient. Vitals/I&O Vitals/I&O: Vital Signs Date Time Temp Pulse Resp B/P (MAP) Pulse Ox O2 Delivery O2 Flow Rate FiO2 10/08/20 12:35 16 Room Air 10/08/20 12:00 97.6 80 121/70 (87) 96 97.6 I & O 10/07/20 10/07/20 10/08/20 15:00 23:00 07:00 Intake Total 500 ml Balance 500 ml Physical Exam General: Alert, Oriented X3, Cooperative, mild distress Heart: Regular rate, Normal S1, Normal S2, No murmurs Lungs: Clear Abdomen: Normal bowel sounds, Soft, No tenderness, No hepatosplenomegaly, No masses Extremities: No clubbing, No cyanosis, No edema, Normal pulses, No tenderness/swelling Skin: No rashes, No breakdown Labs Labs: Laboratory Tests Test 10/07/20 16:53 10/08/20 08:50 SARS-CoV-2 RNA (AKANKSHA) Negative (Negative) SARS-CoV-2 Antigen (Rapid) Negative (NEGATIVE) White Blood Count 5.4 x10^3/uL (4.0-11.0) Red Blood Count 3.96 x10^6/uL (3.50-5.40) Hemoglobin 12.2 g/dL (12.0-15.5) Hematocrit 36.3 % (36.0-47.0) Mean Corpuscular Volume 92 fL (79-100) Mean Corpuscular Hemoglobin 31 pg (25-35) Mean Corpuscular Hemoglobin Concent 34 g/dL (31-37) Red Cell Distribution Width 14.1 % (11.5-14.5) Platelet Count 194 x10^3/uL (140-400) Sodium Level 138 mmol/L (136-145) Potassium Level 4.7 mmol/L (3.5-5.1) Chloride Level 105 mmol/L (98-107) Carbon Dioxide Level 28 mmol/L (21-32) Anion Gap 5 (6-14) Blood Urea Nitrogen 19 mg/dL (7-20) Creatinine 1.3 mg/dL (0.6-1.0) Estimated GFR (Cockcroft-Gault) 39.3 Glucose Level 104 mg/dL (70-99) Calcium Level 8.9 mg/dL (8.5-10.1) Assessment and Plan Assessmemt and Plan Problems Medical Problems: (1) Thrombosis of ovarian vein Status: Acute Comment Review of Relevant I have reviewed the following items angelina (where applicable) has been applied. Medications: Current Medications Medications (Trade) Dose Ordered Sig/Abisai Route PRN Reason Start Time Stop Time Status Last Admin Dose Admin Senna/Docusate Sodium (Senna Plus) 1 tab BID PO 10/07/20 21:00 10/08/20 08:49 Atorvastatin Calcium (Lipitor) 20 mg QHS PO 10/07/20 21:00 10/07/20 21:39 Justifications for Admission Other Justification DIPTI LAGUNA MD Oct 08, 2020 13:16
--- NOTE | 2020-10-08 13:20 | PDOC3 ---
Discharge Summary Visit Information Date of Admission: Oct 07, 2020 Date of Discharge: Oct 08, 2020 Final Diagnosis Problems Medical Problems: (1) Thrombosis of ovarian vein Status: Acute Brief Hospital Course Allergies Allergies Coded Allergies Type Severity Reaction Last Updated Verified naproxen Allergy Intermediate 11/03/14 No Vital Signs Vital Signs Date Time Temp Pulse Resp B/P (MAP) Pulse Ox O2 Delivery O2 Flow Rate FiO2 10/08/20 12:35 16 Room Air 10/08/20 12:00 97.6 80 121/70 (87) 96 97.6 Lab Results Laboratory Tests Test 10/07/20 07:30 10/07/20 10:28 10/07/20 16:53 10/08/20 08:50 White Blood Count 4.6 x10^3/uL (4.0-11.0) 5.4 x10^3/uL (4.0-11.0) Red Blood Count 4.36 x10^6/uL (3.50-5.40) 3.96 x10^6/uL (3.50-5.40) Hemoglobin 13.5 g/dL (12.0-15.5) 12.2 g/dL (12.0-15.5) Hematocrit 39.4 % (36.0-47.0) 36.3 % (36.0-47.0) Mean Corpuscular Volume 90 fL (79-100) 92 fL (79-100) Mean Corpuscular Hemoglobin 31 pg (25-35) 31 pg (25-35) Mean Corpuscular Hemoglobin Concent 34 g/dL (31-37) 34 g/dL (31-37) Red Cell Distribution Width 14.0 % (11.5-14.5) 14.1 % (11.5-14.5) Platelet Count 214 x10^3/uL (140-400) 194 x10^3/uL (140-400) Neutrophils (%) (Auto) 35 % (31-73) Lymphocytes (%) (Auto) 45 % (24-48) Monocytes (%) (Auto) 13 % (0-9) Eosinophils (%) (Auto) 5 % (0-3) Basophils (%) (Auto) 1 % (0-3) Neutrophils # (Auto) 1.6 x10^3/uL (1.8-7.7) Lymphocytes # (Auto) 2.1 x10^3/uL (1.0-4.8) Monocytes # (Auto) 0.6 x10^3/uL (0.0-1.1) Eosinophils # (Auto) 0.2 x10^3/uL (0.0-0.7) Basophils # (Auto) 0.1 x10^3/uL (0.0-0.2) Sodium Level 141 mmol/L (136-145) 138 mmol/L (136-145) Potassium Level 4.1 mmol/L (3.5-5.1) 4.7 mmol/L (3.5-5.1) Chloride Level 106 mmol/L (98-107) 105 mmol/L (98-107) Carbon Dioxide Level 24 mmol/L (21-32) 28 mmol/L (21-32) Anion Gap 11 (6-14) 5 (6-14) Blood Urea Nitrogen 19 mg/dL (7-20) 19 mg/dL (7-20) Creatinine 1.2 mg/dL (0.6-1.0) 1.3 mg/dL (0.6-1.0) Estimated GFR (Cockcroft-Gault) 43.1 39.3 BUN/Creatinine Ratio 16 (6-20) Glucose Level 92 mg/dL (70-99) 104 mg/dL (70-99) Calcium Level 9.4 mg/dL (8.5-10.1) 8.9 mg/dL (8.5-10.1) Total Bilirubin 0.4 mg/dL (0.2-1.0) Aspartate Amino Transf (AST/SGOT) 22 U/L (15-37) Alanine Aminotransferase (ALT/SGPT) 24 U/L (14-59) Alkaline Phosphatase 68 U/L (46-116) Total Protein 6.8 g/dL (6.4-8.2) Albumin 3.4 g/dL (3.4-5.0) Albumin/Globulin Ratio 1.0 (1.0-1.7) CA 125 Antigen 7.1 U/mL (0.0-38.1) Urine Collection Type Void Urine Color Yellow Urine Clarity Clear Urine pH 6.0 (<5.0-8.0) Urine Specific [place] 1.025 (1.000-1.030) Urine Protein Negative mg/dL (NEG-TRACE) Urine Glucose (UA) Negative mg/dL (NEG) Urine Ketones (Stick) Negative mg/dL (NEG) Urine Blood Negative (NEG) Urine Nitrite Negative (NEG) Urine Bilirubin Negative (NEG) Urine Urobilinogen Dipstick 0.2 mg/dL (0.2 mg/dL) Urine Leukocyte Esterase Trace (NEG) Urine RBC 0 /HPF (0-2) Urine WBC 5-10 /HPF (0-4) Urine Squamous Epithelial Cells Mod /LPF Urine Bacteria 0 /HPF (0-FEW) SARS-CoV-2 RNA (AKANKSHA) Negative (Negative) SARS-CoV-2 Antigen (Rapid) Negative (NEGATIVE) Laboratory Tests Test 10/07/20 16:53 10/08/20 08:50 SARS-CoV-2 RNA (AKANKSHA) Negative (Negative) SARS-CoV-2 Antigen (Rapid) Negative (NEGATIVE) White Blood Count 5.4 x10^3/uL (4.0-11.0) Red Blood Count 3.96 x10^6/uL (3.50-5.40) Hemoglobin 12.2 g/dL (12.0-15.5) Hematocrit 36.3 % (36.0-47.0) Mean Corpuscular Volume 92 fL (79-100) Mean Corpuscular Hemoglobin 31 pg (25-35) Mean Corpuscular Hemoglobin Concent 34 g/dL (31-37) Red Cell Distribution Width 14.1 % (11.5-14.5) Platelet Count 194 x10^3/uL (140-400) Sodium Level 138 mmol/L (136-145) Potassium Level 4.7 mmol/L (3.5-5.1) Chloride Level 105 mmol/L (98-107) Carbon Dioxide Level 28 mmol/L (21-32) Anion Gap 5 (6-14) Blood Urea Nitrogen 19 mg/dL (7-20) Creatinine 1.3 mg/dL (0.6-1.0) Estimated GFR (Cockcroft-Gault) 39.3 Glucose Level 104 mg/dL (70-99) Calcium Level 8.9 mg/dL (8.5-10.1) Brief Hospital Course Ms. Dalton is a 80 old female who presented with right ovarian vein thrombus. Consultations placed to SOLAR ELECTRIC PRACTITIONER. She was treated with Lovenox 1 mg/kilogram twice daily. Per SOLAR ELECTRIC PRACTITIONER, she was recommended treatment with Lovenox given that she is symptomatic. Did note some improvement after initiating Lovenox treatment. After discussions about different methods of anticoagulation, she will be discharged home on Eliquis. We will also provide pain management. Discussed with patient that it may take upwards of 21 days resolution from right ovarian vein thrombus. Recommend follow-up with PCP within 5-7 days. Discharge Information Condition at Discharge: Improved Disposition/Orders: D/C to Home Scheduled Amlodipine Besylate (Amlodipine Besylate) 10 Mg Tablet, 10 MG PO DAILY for hypertension for 30 Days, #30 Prescribed by: RAMON ADAMSON MD on 01/17/181227 Last Action: Continued on 10/07/201109 by ZION PETERSON MD Atorvastatin Calcium (Atorvastatin Calcium) 20 Mg Tablet, 20 MG PO QHS for hyperlipidemia for 30 Days, #30 Prescribed by: RAMON ADAMSON MD on 01/17/181227 Last Action: Continued on 10/07/201109 by ZION PETERSON MD Fluoxetine Hcl (Prozac) 40 Mg Capsule, 1 CAP PO DAILY for depression, #30 Ref 3 (Reported) Entered as Reported by: CEASAR YAN on 01/16/18 1303 Last Action: Converted on 10/07/201109 by ZION PETERSON MD Metoprolol Tartrate (Metoprolol Tartrate) 25 Mg Tablet, 25 MG PO BID for hypertension for 30 Days, #60 Prescribed by: RAMON ADAMSON MD on 01/17/181227 Last Action: Continued on 10/07/201109 by ZION PETERSON MD Scheduled PRN Lorazepam (Ativan) 0.5 Mg Tablet, 0.5 MG PO PRN Q8HRS PRN for ANXIETY / AGITATION for 3 Days, #15 Prescribed by: RAMON ADAMSON MD on 01/17/181227 Last Action: Continued on 10/07/201109 by ZION PETERSON MD Justicifation of Admission Dx: Justifications for Admission: Justification of Admission Dx: Yes DIPTI LAGUNA MD Oct 08, 2020 13:20
[2020-10-08] MEDS ORDERED: OXYC1TAB15 PO (13:34)
[2020-10-08] MEDS ORDERED: POLY17PO29 PO (13:34)
[2020-10-08] MEDS ORDERED: APIX5TAB PO (13:34)
[2020-10-08] MEDS ORDERED: ONDANSETRON ODT 4 MG TAB.RAPDIS. PO PRN (14:00)
[2020-10-08 14:10] VITALS: BP 148/82
--- NOTE | 2020-10-08 14:10 | NUR ---
home care instructions given and pt complained of being nauseated and anxious about going home. Instructed to take zofran and lay back and relax. No hurry for her to go home
--- NOTE | 2020-10-08 15:20 | NUR ---
Dismissed per w/c to in car home care instructions given and pt will make appt with dr garcia when she gets home for next week. Pt understands along with that rx is at [facility] in [place]. Stable on feet and anxiety is much better.
== END 2020-10-08 15:20 | disposition home or self-care (01) | DRG 301 ==
LOC: ER 06:50 → ED HOLD 12:34 → 3 SO LND 17:56
PROVIDERS: ADMIT Student in an Organized Health Care Education/Training Program; ATTEND Student in an Organized Health Care Education/Training Program
DX: I82.890 Acute embolism and thrombosis of other specified veins (principal); E78.5 Hyperlipidemia, unspecified; F32.9 Major depressive disorder, single episode, unspecified; F41.9 Anxiety disorder, unspecified; I10 Essential (primary) hypertension; I25.10 Atherosclerotic heart disease of native coronary artery without angina pectoris; K44.9 Diaphragmatic hernia without obstruction or gangrene; K57.30 Diverticulosis of large intestine without perforation or abscess without bleeding; K59.00 Constipation, unspecified; Z79.899 Other long term (current) drug therapy; Z82.49 Family history of ischemic heart disease and other diseases of the circulatory system; Z90.49 Acquired absence of other specified parts of digestive tract; Z90.710 Acquired absence of both cervix and uterus; Z78.0 Asymptomatic menopausal state; Z20.822 Contact with and (suspected) exposure to COVID-19
CPT/HCPCS: 36415; 74177; 80048; 80053; 81001; 85025; 85027; 86304; 87426; 96361; 96374; 96375; J1650; J2270; J2405; J7040; Q9967; U0003; U0005; 99285-25; G0378

== ENCOUNTER 2020-10-10 00:25 | Observation (INO) | payer BC, MEDICARE ==
[~2020-10-10] VITALS: Ht 160 cm; Wt 85.0 kg
[~2020-10-10 00:25] MED LIST changes: +APIX5TAB PO; +OXYC1TAB15 PO; +POLY17PO29 PO
[2020-10-10 01:54] LABS: BASO # 0.1 x10^3/uL (0.0-0.2); BASO % 1 % (0-3); EOS # 0.1 x10^3/uL (0.0-0.7); EOS % 3 % (0-3); LYMPH # 1.2 x10^3/uL (1.0-4.8); LYMPH % 26 % (24-48); MEAN CORPUSCULAR HEMOGLOBIN 31 pg (25-35); MEAN CORPUSCULAR HGB CONC 34 g/dL (31-37); MEAN CORPUSCULAR VOLUME 90 fL (79-100); MONO # 0.7 x10^3/uL (0.0-1.1); MONO % 15 % (0-9); NEUT # 2.5 x10^3/uL (1.8-7.7); NEUT % 55 % (31-73); PLATELET COUNT 177 x10^3/uL (140-400); RED BLOOD COUNT 3.89 x10^6/uL (3.50-5.40); RED CELL DISTRIBUTION WIDTH 13.8 % (11.5-14.5); WHITE BLOOD COUNT 4.5 x10^3/uL (4.0-11.0)
[2020-10-10 02:01] LABS: CALCIUM 9.3 mg/dL (8.5-10.1); CREATININE 1.1 mg/dL (0.6-1.0); GFR 47.7
[2020-10-10 02:07] LABS: ALBUMIN 3.3 g/dL (3.4-5.0); ALBUMIN/GLOBULIN RATIO 1.1 (1.0-1.7); TOTAL BILIRUBIN 0.3 mg/dL (0.2-1.0); TOTAL PROTEIN 6.4 g/dL (6.4-8.2)
--- NOTE | 2020-10-10 02:22 | PHYS DOC ---
Past Medical History Past Medical History: Depression, Hypertension Additional Past Medical Histor: HYPOGAMAGLOBULIN ANEMIA, SINUS INFECTIONS Past Surgical History: Cholecystectomy, Hysterectomy Additional Past Surgical Histo: BILAT SINUS SGRY, BILAT SHOULDER, Smoking Status: Never Smoker Alcohol Use: None Drug Use: None General Adult EDM: Chief Complaint: ABDOMINAL PAIN HPI: HPI: Patient is a 80 year old female presents for re-evalution of abdominal pain located in the RLQ. Onset of pain 10/05. Pain is located in RLQ. Patient was evaluated in this ER on Thursday and venous thrombosis right ovary. Review of Systems: Review of Systems: Constitutional: Denies fever or chills. [] Eyes: Denies change in visual acuity. [] HENT: Denies nasal congestion or sore throat. [] Respiratory: Denies cough or shortness of breath. [] Cardiovascular: Denies chest pain or edema. [] GI: Denies abdominal pain, nausea, vomiting, bloody stools or diarrhea. [] : Denies dysuria. [] Musculoskeletal: Denies back pain or joint pain. [] Integument: Denies rash. [] Neurologic: Denies headache, focal weakness or sensory changes. [] Endocrine: Denies polyuria or polydipsia. [] Lymphatic: Denies swollen glands. [] Psychiatric: Denies depression or anxiety. [] Heart Score: C/O Chest Pain: N/A Risk Factors: Risk Factors: DM, Current or recent (<one month) smoker, HTN, HLP, family history of CAD, obesity. Risk Scores: Score 0 - 3: 2.5% MACE over next 6 weeks - Discharge Home Score 4 - 6: 20.3% MACE over next 6 weeks - Admit for Clinical Observation Score 7 - 10: 72.7% MACE over next 6 weeks - Early Invasive Strategies Current Medications: Current Medications Medications (Trade) Dose Ordered Sig/Abisai Start Time Stop Time Status Last Admin Dose Admin Morphine Sulfate (Morphine Sulfate) 4 mg 1X ONCE 10/10/20 02:30 10/10/20 02:31 10/10/20 02:09 4 MG Sodium Chloride 1,000 ml @ 1,000 mls/hr 1X ONCE 10/10/20 02:30 10/10/20 03:29 10/10/20 02:12 1,000 MLS/HR Allergies: Allergies: Allergies Coded Allergies Type Severity Reaction Last Updated Verified naproxen Allergy Intermediate 11/03/14 No Physical Exam: PE: Constitutional: Well developed, well nourished, no acute distress, non-toxic appearance. [] HENT: Normocephalic, atraumatic, bilateral external ears normal, oropharynx moist, no oral exudates, nose normal. [] Eyes: PERRLA, EOMI, conjunctiva normal, no discharge. [] Neck: Normal range of motion, no tenderness, supple, no stridor. [] Cardiovascular:Heart rate regular rhythm, no murmur [] Lungs & Thorax: Bilateral breath sounds clear to auscultation [] Abdomen: Bowel sounds normal, soft, no tenderness, no masses, no pulsatile masses. [] Skin: Warm, dry, no erythema, no rash. [] Back: No tenderness, no CVA tenderness. [] Extremities: No tenderness, no cyanosis, no clubbing, ROM intact, no edema. [] Neurologic: Alert and oriented X 3, normal motor function, normal sensory function, no focal deficits noted. [] Psychologic: Affect normal, judgement normal, mood normal. [] Current Patient Data: Labs: Laboratory Tests Test 10/10/20 01:40 White Blood Count 4.5 x10^3/uL (4.0-11.0) Red Blood Count 3.89 x10^6/uL (3.50-5.40) Hemoglobin 12.0 g/dL (12.0-15.5) Hematocrit 35.0 % (36.0-47.0) L Mean Corpuscular Volume 90 fL (79-100) Mean Corpuscular Hemoglobin 31 pg (25-35) Mean Corpuscular Hemoglobin Concent 34 g/dL (31-37) Red Cell Distribution Width 13.8 % (11.5-14.5) Platelet Count 177 x10^3/uL (140-400) Neutrophils (%) (Auto) 55 % (31-73) Lymphocytes (%) (Auto) 26 % (24-48) Monocytes (%) (Auto) 15 % (0-9) H Eosinophils (%) (Auto) 3 % (0-3) Basophils (%) (Auto) 1 % (0-3) Neutrophils # (Auto) 2.5 x10^3/uL (1.8-7.7) Lymphocytes # (Auto) 1.2 x10^3/uL (1.0-4.8) Monocytes # (Auto) 0.7 x10^3/uL (0.0-1.1) Eosinophils # (Auto) 0.1 x10^3/uL (0.0-0.7) Basophils # (Auto) 0.1 x10^3/uL (0.0-0.2) Sodium Level 142 mmol/L (136-145) Potassium Level 4.0 mmol/L (3.5-5.1) Chloride Level 106 mmol/L (98-107) Carbon Dioxide Level 29 mmol/L (21-32) Anion Gap 7 (6-14) Blood Urea Nitrogen 21 mg/dL (7-20) H Creatinine 1.1 mg/dL (0.6-1.0) H Estimated GFR (Cockcroft-Gault) 47.7 BUN/Creatinine Ratio 19 (6-20) Glucose Level 103 mg/dL (70-99) H Calcium Level 9.3 mg/dL (8.5-10.1) Total Bilirubin 0.3 mg/dL (0.2-1.0) Aspartate Amino Transferase (AST) 24 U/L (15-37) Alanine Aminotransferase (ALT) 25 U/L (14-59) Alkaline Phosphatase 67 U/L (46-116) Total Protein 6.4 g/dL (6.4-8.2) Albumin 3.3 g/dL (3.4-5.0) L Albumin/Globulin Ratio 1.1 (1.0-1.7) Lipase 149 U/L (73-393) Laboratory Tests 10/10/20 01:40 Laboratory Tests 10/10/20 01:40 Vital Signs: Vital Signs Date Time Temp Pulse Resp B/P (MAP) Pulse Ox O2 Delivery O2 Flow Rate FiO2 10/10/20 02:09 16 99 Room Air 10/10/20 02:00 93 178/83 (114) 10/10/20 01:13 97.2 97.2 EKG: EKG: [] Radiology/Procedures: Radiology/Procedures: [] Course & Med Decision Making: Course & Med Decision Making Pertinent Labs and Imaging studies reviewed. (See chart for details) [] Lydia Disclaimer: Dragon Disclaimer: This electronic medical record was generated, in whole or in part, using a voice recognition dictation system. Departure Departure Impression: Primary Impression: Intractable abdominal pain Additional Impressions: UTI (urinary tract infection) Anxiety Admitting Physician: ZAK Referrals: BG NEWBY DO (PCP) Benny Valacyclovir Hcl (VALTREX) 1,000 Mg Tablet 1 TAB PO TID for Shingles for 7 Days, #21 TAB Prov: ZION SPRING MD 10/10/20 Gabapentin (Gabapentin) 100 Mg Capsule 100 MG PO TID for Shingles for 30 Days, #90 CAP Prov: ZION SPRING MD 10/10/20 GUILHERME CAN DO Oct 10, 2020 02:22
[2020-10-10] MEDS ORDERED: MORPHINE SULFATE 4 MG/ML INJ. IVP ONE (02:30)
[2020-10-10] MEDS ORDERED: IV NORMAL SALINE 1000ML BAG 1,000 ML IV ONE (02:30)
[2020-10-10 03:22] LABS: BILIRUBIN,URINE NEGATIVE (NEG); CLARITY,URINE CLEAR; COLOR,URINE YELLOW; NITRITE,URINE NEGATIVE (NEG); PH,URINE 6.5 (<5.0-8.0); PROTEIN,URINE NEGATIVE (NEG-TRACE); UROBILINOGEN,URINE 0.2 mg/dL (0.2 mg/dL)
[2020-10-10 03:27] LABS: BACTERIA,URINE FEW /HPF (0-FEW); RBC,URINE 0 /HPF (0-2)
[2020-10-10] MEDS ORDERED: CONTRAST GIVEN. MC PRN (05:00)
[2020-10-10] MEDS ORDERED: IOHEXOL 300 MG/ML 100ML VIAL. IV ONE (05:30)
--- NOTE | 2020-10-10 05:32 | RAD ---
CT abdomen and pelvis with contrast PQRS statement: CT scans at this facility use dose reduction including either automated exposure cont rol, iterative reconstructions, and /or weight based radiation dosing via mA and kV modification when appropriate to reduce radiation dose to as low as reasonably achievable. Contrast: 60 mL of opaque 300 intravenous contrast COMPARISON: CT abdomen and pelvis October 07, 2020 HISTORY: Right lower quadrant abdominal pain. History of ovarian vein thrombosis. Abdomen findings: Discoid atelectasis right lower lobe. Hiatal hernia upper stomach. Lumbar disc dise ase and facet arthritis, grade 1 anterolisthesis of L4 on L5. There are small scattered subcentimeter hypodense lesions of the liver which are too small to characterize but are grossly stable presumably small cysts. There is a 1 cm cyst at the dome of the liver image 9. Mild prominence of the bile duct s typical after cholecystectomy. Pancreas, spleen, adrenal glands unremarkable. Bilateral renal parap elvic cysts. Subcentimeter cortical hypodensities likely cysts too small to characterize, grossly sta ble. Sigmoid colonic diverticulosis. There is fluid throughout most of the large bowel. The appendix is negative. No bowel obstruction. No inflammatory changes. Abdominal aortic calcified plaque. No abd ominal fluid or adenopathy. No ovarian vein thrombosis evident, the tubular hypodensity of the right lower quadrant previously described appears to correspond to the ureter which is decreased in diamete r since the prior exam. Pelvis findings: Hysterectomy. Ovaries absent. Rectosigmoid diverticulosis. Bladder and bones are unr emarkable. No pelvic fluid or adenopathy. IMPRESSION: 1. No acute process. The appendix is negative. 2. There is prominent fluid within the colon from the cecum through the descending colon can be obser neelima with diarrhea. There is solid stool within the rectosigmoid. No bowel obstruction or inflammatory changes evident. 3. Hiatal hernia of the upper stomach. 4. No ovarian vein thrombosis evident on the current exam. The questioned tubular hypodensity at the right lower quadrant on the prior study may correspond to the ureter, which is decreased in caliber o n the current exam. 5. Other incidental findings are stable as described above. Electronically signed by: Azam Layton MD (10/10/2020 5:29 AM) [facility]
[2020-10-10 07:15] VITALS: BP 161/91
--- NOTE | 2020-10-10 07:17 | NUR ---
Arrived to unit from ER by w/c. Admitted with abdominal pain. States pain radiates from mid abdominal and radiates to right flank area. Pt had BM yesterday and was normal. Voiding without difficulty. Saline lock located right ac. Oriented to room and controls. Side rails up x's 2 with call light in reach. Cont. monitor.
[2020-10-10] MEDS ORDERED: METOPROLOL IV PUSH 5 MG/5 ML VIAL. IVP ONE (07:30)
--- NOTE | 2020-10-10 08:11 | PDOC1 ---
History and Physical Date of Admission Date of Admission DATE: 10/10/20 TIME: 08:07 Identification/Chief Complaint Chief Complaint Intractable abdominal pain Source Source: Caregiver, Chart review, Patient History of Present Illness History of Present Illness Ms Dalton is a 80-year-old female w/ PMHx anxiety with depression, HTN, HLD who presented to the emergency room c/o intractable right sided pain. Was admitted and discharged 2 days ago for the same and return to the ED as treatment for what was diagnosed as ovarian vein thrombus was not helping. She does have CT scan that does not show any acute findings but GI has been consulted. On further review she notes a rash that is pruritic her abdominal wall. Patient reports that 30 to 40 years ago she had a hysterectomy due to heavy menses. She was under the assumption her ovaries were removed at the time as well. Patient denies any new medications. Is denying headache, vision changes, dizziness, fever, chest pain, shortness of breath, joint pain. Past Medical History Cardiovascular: HTN, Hyperlipidemia Past Surgical History Past Surgical History: Hysterectomy Family History Family History: Family History Unknown Social History Smoke: No ALCOHOL: none Drugs: None Current Problem List Problem List Problems Medical Problems: (1) Anxiety Status: Acute (2) Intractable abdominal pain Status: Acute (3) UTI (urinary tract infection) Status: Acute Current Medications Current Medications Current Medications Morphine Sulfate (Morphine Sulfate) 4 mg 1X ONCE IVP Last administered on 10/10/20at 02:09; Start 10/10/20 at 02:30; Stop 10/10/20 at 02:31; Status DC Sodium Chloride 1,000 ml @ 1,000 mls/hr 1X ONCE IV Last administered on 10/10/20at 02:12; Start 10/10/20 at 02:30; Stop 10/10/20 at 03:29; Status DC Lorazepam (Ativan Inj) 1 mg 1X ONCE IVP Last administered on 10/10/20at 04:23; Start 10/10/20 at 04:30; Stop 10/10/20 at 04:31; Status DC Iohexol (Omnipaque 300 Mg/ml) 60 ml 1X ONCE IV Last administered on 10/10/20at 05:06; Start 10/10/20 at 05:30; Stop 10/10/20 at 05:31; Status DC Info (CONTRAST GIVEN -- Rx MONITORING) 1 each PRN DAILY PRN MC SEE COMMENTS; Start 10/10/20 at 05:00; Stop 10/12/20 at 04:59 Metoprolol Tartrate (Lopressor Vial) 5 mg 1X ONCE IVP Last administered on 10/10/20at 07:05; Start 10/10/20 at 07:30; Stop 10/10/20 at 07:31; Status DC Active Scripts Active Miralax (Polyethylene Glycol 3350) 17 Gm Powd.pack 1 Packet PO DAILY dissolve in water Percocet 5-325 Mg Tablet (Oxycodone/Acetaminophen) 1 Each Tablet 1 Tab PO PRN Q4-6HRS PRN Eliquis (Apixaban) 5 Mg Tablet 5 Mg PO BID Atorvastatin Calcium 20 Mg Tablet 20 Mg PO QHS 30 Days Metoprolol Tartrate 25 Mg Tablet 25 Mg PO BID 30 Days Amlodipine Besylate 10 Mg Tablet 10 Mg PO DAILY 30 Days Ativan (Lorazepam) 0.5 Mg Tablet 0.5 Mg PO PRN Q8HRS PRN 3 Days Reported Prozac (Fluoxetine Hcl) 40 Mg Capsule 1 Cap PO DAILY Allergies Allergies: Coded Allergies: naproxen (Unverified Allergy, Intermediate, 11/03/14) ROS General: YES: Fatigue, Malaise; No: Chills, Night Sweats, Appetite, Other PSYCHOLOGICAL ROS: YES: Anxiety, Depression; No: Behavioral Disorder, Concentration difficultie, Decreased libido, Disorientation, Hallucinations, Hostility, Irritablity, Memory difficulties, Mood Swings, Obsessive thoughts, Physical abuse, Sexual abuse, Sleep disturbances, Suicidal ideation, Other Eyes: No Blurry vision, No Decreased vision, No Double vision, No Dry eyes, No Excessive tearing, No Eye Pain, No Itchy Eyes, No Loss of vision, No Photop hobia, No Scotomata, No Uses contacts, No Uses glasses, No Other HEENT: No: Heacaches, Visual Changes, Hearing change, Nasal congestion, Nasal discharge, Oral lesions, Sinus pain, Sore Throat, Epistaxis, Sneezing, Snoring, Tinnitus, Vertigo, Vocal changes, Other ALLERGY AND IMMUNOLOGY: No: Hives, Insect Bite Sensitivity, Itchy/Watery Eyes, Nasal Congestion, Post Nasal Drip, Seasonal Allergies, Other Hematological and Lymphatic: YES: Blood Clots; No: Bleeding Problems, Blood Transfusions, Brusing, Night Sweats, Pallor, Swollen Lymph Nodes, Other ENDOCRINE: No: Breast Changes, Galactorrhea, Hair Pattern Changes, Hot Flashes, Malaise/lethargy, Mood Swings, Palpitations, Polydipsia/polyuria, Skin Changes, Temperature Intolerance, Unexpected Weight Changes, Other Breast: No New/Changing Breast Lumps, No Nipple changes, No Nipple discharge, No Other Respiratory: No: Cough, Hemoptysis, Orthopnea, Pleuritic Pain, Shortness of breath, SOB with excertion, Sputum Changes, Stridor, Tachypnea, Wheezing, Other Cardiovascular: No Chest Pain, No Palpitations, No Orthopnea, No Paroxysmal Noc. Dyspnea, No Edema, No Lt Headedness, No Other Gastrointestinal: Yes Abdominal Pain; No Nausea, No Vomiting, No Diarrhea, No Constipation, No Melena, No Hematochezia, No Other Genitourinary: No Dysuria, No Frequency, No Incontinence, No Hematuria, No Retention, No Discharge, No Urgency, No Pain, No Flank Pain, No Other, No , No , No , No , No , No , No Musculoskeletal: No Gait Disturbance, No Joint Pain, No Joint Stiffness, No Pily int Swelling, No Muscle Pain, No Muscular Weakness, No Pain In:, No Swelling In:, No Other Neurological: No Behavorial Changes, No Bowel/Bladder ControlChng, No Confusion, No Dizziness, No Gait Disturbance, No Headaches, No Impaired C oord/balance, No Memory Loss, No Numbness/Tingling, No Seizures, No Speech Problems, No Tremors, No Visual Changes, No Weakness, No Other Skin: No Dry Skin, No Eczema, No Hair Changes, No Lumps, No Mole Changes, No Mottling, No Nail Changes, No Pruritus, No Rash, No Skin Lesion Changes, No Other, No Acne Physical Exam General: Alert, Oriented X3, Cooperative, moderate distress HEENT: Atraumatic, PERRLA, EOMI, Mucous membr. moist/pink Lungs: Clear to auscultation, Normal air movement Heart: S1S2, RRR, no thrills, no rubs, no gallops, no murmurs Abdomen: Normal bowel sounds, Soft, No tenderness, No hepatosplenomegaly, No masses Extremities: No clubbing, No cyanosis, No edema, Normal pulses, No tenderness/swelling Skin: Other (Right sided rash from back on the abdomen around T10 T9 distribution.) Neuro: Normal gait, Normal speech, Strength at 5/5 X4 ext, Normal tone, Sensation intact, Cranial nerves 3-12 NL, Reflexes 2+ Psych/Mental Status: Mental status NL, Mood NL Vitals Vitals Vital Signs Date Time Temp Pulse Resp B/P (MAP) Pulse Ox O2 Delivery O2 Flow Rate FiO2 10/10/20 07:15 98.0 86 20 161/91 (114) 99 Nasal Cannula 2.0 98.0 Labs Labs Laboratory Tests Test 10/10/20 01:40 10/10/20 03:14 White Blood Count 4.5 x10^3/uL (4.0-11.0) Red Blood Count 3.89 x10^6/uL (3.50-5.40) Hemoglobin 12.0 g/dL (12.0-15.5) Hematocrit 35.0 % (36.0-47.0) Mean Corpuscular Volume 90 fL (79-100) Mean Corpuscular Hemoglobin 31 pg (25-35) Mean Corpuscular Hemoglobin Concent 34 g/dL (31-37) Red Cell Distribution Width 13.8 % (11.5-14.5) Platelet Count 177 x10^3/uL (140-400) Neutrophils (%) (Auto) 55 % (31-73) Lymphocytes (%) (Auto) 26 % (24-48) Monocytes (%) (Auto) 15 % (0-9) Eosinophils (%) (Auto) 3 % (0-3) Basophils (%) (Auto) 1 % (0-3) Neutrophils # (Auto) 2.5 x10^3/uL (1.8-7.7) Lymphocytes # (Auto) 1.2 x10^3/uL (1.0-4.8) Monocytes # (Auto) 0.7 x10^3/uL (0.0-1.1) Eosinophils # (Auto) 0.1 x10^3/uL (0.0-0.7) Basophils # (Auto) 0.1 x10^3/uL (0.0-0.2) Sodium Level 142 mmol/L (136-145) Potassium Level 4.0 mmol/L (3.5-5.1) Chloride Level 106 mmol/L (98-107) Carbon Dioxide Level 29 mmol/L (21-32) Anion Gap 7 (6-14) Blood Urea Nitrogen 21 mg/dL (7-20) Creatinine 1.1 mg/dL (0.6-1.0) Estimated GFR (Cockcroft-Gault) 47.7 BUN/Creatinine Ratio 19 (6-20) Glucose Level 103 mg/dL (70-99) Calcium Level 9.3 mg/dL (8.5-10.1) Total Bilirubin 0.3 mg/dL (0.2-1.0) Aspartate Amino Transf (AST/SGOT) 24 U/L (15-37) Alanine Aminotransferase (ALT/SGPT) 25 U/L (14-59) Alkaline Phosphatase 67 U/L (46-116) Total Protein 6.4 g/dL (6.4-8.2) Albumin 3.3 g/dL (3.4-5.0) Albumin/Globulin Ratio 1.1 (1.0-1.7) Lipase 149 U/L (73-393) Urine Collection Type Unknown Urine Color Yellow Urine Clarity Clear Urine pH 6.5 (<5.0-8.0) Urine Specific Edison 1.025 (1.000-1.030) Urine Protein Negative mg/dL (NEG-TRACE) Urine Glucose (UA) Negative mg/dL (NEG) Urine Ketones (Stick) 15 mg/dL (NEG) Urine Blood Negative (NEG) Urine Nitrite Negative (NEG) Urine Bilirubin Negative (NEG) Urine Urobilinogen Dipstick 0.2 mg/dL (0.2 mg/dL) Urine Leukocyte Esterase Small (NEG) Urine RBC 0 /HPF (0-2) Urine WBC 5-10 /HPF (0-4) Urine Squamous Epithelial Cells Mod /LPF Urine Bacteria Few /HPF (0-FEW) Urine Mucus Mod /LPF Laboratory Tests Test 10/10/20 01:40 10/10/20 03:14 White Blood Count 4.5 x10^3/uL (4.0-11.0) Red Blood Count 3.89 x10^6/uL (3.50-5.40) Hemoglobin 12.0 g/dL (12.0-15.5) Hematocrit 35.0 % (36.0-47.0) Mean Corpuscular Volume 90 fL (79-100) Mean Corpuscular Hemoglobin 31 pg (25-35) Mean Corpuscular Hemoglobin Concent 34 g/dL (31-37) Red Cell Distribution Width 13.8 % (11.5-14.5) Platelet Count 177 x10^3/uL (140-400) Neutrophils (%) (Auto) 55 % (31-73) Lymphocytes (%) (Auto) 26 % (24-48) Monocytes (%) (Auto) 15 % (0-9) Eosinophils (%) (Auto) 3 % (0-3) Basophils (%) (Auto) 1 % (0-3) Neutrophils # (Auto) 2.5 x10^3/uL (1.8-7.7) Lymphocytes # (Auto) 1.2 x10^3/uL (1.0-4.8) Monocytes # (Auto) 0.7 x10^3/uL (0.0-1.1) Eosinophils # (Auto) 0.1 x10^3/uL (0.0-0.7) Basophils # (Auto) 0.1 x10^3/uL (0.0-0.2) Sodium Level 142 mmol/L (136-145) Potassium Level 4.0 mmol/L (3.5-5.1) Chloride Level 106 mmol/L (98-107) Carbon Dioxide Level 29 mmol/L (21-32) Anion Gap 7 (6-14) Blood Urea Nitrogen 21 mg/dL (7-20) Creatinine 1.1 mg/dL (0.6-1.0) Estimated GFR (Cockcroft-Gault) 47.7 BUN/Creatinine Ratio 19 (6-20) Glucose Level 103 mg/dL (70-99) Calcium Level 9.3 mg/dL (8.5-10.1) Total Bilirubin 0.3 mg/dL (0.2-1.0) Aspartate Amino Transf (AST/SGOT) 24 U/L (15-37) Alanine Aminotransferase (ALT/SGPT) 25 U/L (14-59) Alkaline Phosphatase 67 U/L (46-116) Total Protein 6.4 g/dL (6.4-8.2) Albumin 3.3 g/dL (3.4-5.0) Albumin/Globulin Ratio 1.1 (1.0-1.7) Lipase 149 U/L (73-393) Urine Collection Type Unknown Urine Color Yellow Urine Clarity Clear Urine pH 6.5 (<5.0-8.0) Urine Specific Edison 1.025 (1.000-1.030) Urine Protein Negative mg/dL (NEG-TRACE) Urine Glucose (UA) Negative mg/dL (NEG) Urine Ketones (Stick) 15 mg/dL (NEG) Urine Blood Negative (NEG) Urine Nitrite Negative (NEG) Urine Bilirubin Negative (NEG) Urine Urobilinogen Dipstick 0.2 mg/dL (0.2 mg/dL) Urine Leukocyte Esterase Small (NEG) Urine RBC 0 /HPF (0-2) Urine WBC 5-10 /HPF (0-4) Urine Squamous Epithelial Cells Mod /LPF Urine Bacteria Few /HPF (0-FEW) Urine Mucus Mod /LPF Images Images Discoid atelectasis right lower lobe. Hiatal hernia upper stomach. Lumbar disc disease and facet arthritis, grade 1 anterolisthesis of L4 on L5. There are small scattered subcentimeter hypodense lesions of the liver which are too small to characterize but are grossly stable presumably small cysts. There is a 1 cm cyst at the dome of the liver image 9. Mild prominence of the bile ducts typical after cholecystectomy. Pancreas, spleen, adrenal glands unremarkable. Bilateral renal parapelvic cysts. Subcentimeter cortical hypodensities likely cysts too small to characterize, grossly stable. Sigmoid colonic diverticulosis. There is fluid throughout most of the large bowel. The appendix is negative. No bowel obstruction. No inflammatory changes. Abdominal aortic calcified plaque. No abdominal fluid or adenopathy. No ovarian vein thrombosis evident, the tubular hypodensity of the right lower quadrant previously described appears to correspond to the ureter which is decreased in diameter since the prior exam. Pelvis findings: Hysterectomy. Ovaries absent. Rectosigmoid diverticulosis. Bladder and bones are unremarkable. No pelvic fluid or adenopathy. IMPRESSION: 1. No acute process. The appendix is negative. 2. There is prominent fluid within the colon from the cecum through the descending colon can be observed with diarrhea. There is solid stool within the rectosigmoid. No bowel obstruction or inflammatory changes evident. 3. Hiatal hernia of the upper stomach. 4. No ovarian vein thrombosis evident on the current exam. The questioned tubular hypodensity at the right lower quadrant on the prior study may correspond to the ureter, which is decreased in caliber on the current exam. 5. Other incidental findings are stable as described above. VTE Prophylaxis Ordered VTE Prophylaxis Devices: No VTE Pharmacological Prophylaxi: Yes Assessment/Plan Assessment/Plan A/P: Shingles - classic distribution. Does not know she had shingles vaccination. Will initiate 1000 g 3 times daily valacyclovir, tramadol, gabapentin and prescribed topical Zovirax ointment. Keep wound covered until dry. Right lower quadrant pain secondary to ovarian vein thrombosis - cont eliquis hypertension - cont meds hyperlipidemia - cont meds Anxiety with depression - prozac FEN - General diet PPX - eliquis FULL CODE Dispo - can d/c home, observed Justifications for Admission Other Justification ZION SPRING MD Oct 10, 2020 08:11
[2020-10-10] MEDS ORDERED: HYDROcodone/APAP 5/325MG 1 TAB TABLET PO PRN (08:15)
[2020-10-10] MEDS ORDERED: fentaNYL PF VIAL 100 MCG/2 ML VIAL IVP PRN (08:15)
[2020-10-10] MEDS ORDERED: ONDANSETRON PF 4 MG/2 ML VIAL. IVP PRN (08:15)
[2020-10-10] MEDS ORDERED: ACETAMINOPHEN 325 MG TABLET. PO PRN (08:15)
[2020-10-10] MEDS ORDERED: ANTI-COAG MONITOR BY PHARMACY. MC PRN (08:30)
[2020-10-10] MEDS ORDERED: APIXABAN 5 MG TABLET. PO SCH (09:00)
[2020-10-10] MEDS ORDERED: METOPROLOL TART IMMED RELEASE 25 MG TABLET. PO SCH (09:00)
[2020-10-10] MEDS ORDERED: FLUoxetine HCL 20 MG CAPSULE PO SCH (09:00)
[2020-10-10] MEDS ORDERED: valACYclovir 500 MG TABLET. PO SCH (11:00)
[2020-10-10 11:02] VITALS: BP 162/98
--- NOTE | 2020-10-10 11:18 | PDOC2 ---
GI CONSULT Date of Service: DATE: 10/10/20 TIME: 11:04 Reason For Consult: intractable abdominal pain HPI: HPI: 80 y/o female seen w/ Dr. Buchanan. Admitted through ER w/ right lower abdominal pain (also mentions "groin") that wraps around right side to right flank. Worse w/ movement - "I can never tell when it's gonna get me." Maybe felt a little better after stooling but not really. Can feel like "burning." Some nausea w/o vomiting. Wasn't too interested in eating ("or fixing dinner") last night. H/o GERD improved w/ OTC Nexium. No dysphagia, weight loss, diarrhea, hematochezia, or melena. Ho irregular bowel habits - no stools for a few days, then lots of stools. Took Milk of Magnesia recently and stooled yesterday. No previous EGD or colonoscopy. S/p cholecystectomy. No liver, pancreas, or PUD history. Mentions coughing a lot recently. Summary list includes [place]. PMH: PMH: depression/anxiety, HTN, HLD hysterectomy, cholecystectomy, shoulder surgeries FH: Family History: No pertinent hx Social History: Smoke: No ALCOHOL: none Drugs: None ROS: GEN: Denies fevers, chills, sweats HEENT: Denies blurred vision, sore throat CV: Denies chest pain RESP: +coughing GI: Per HPI : Denies hematuria, dysuria ENDO: Denies weight changes NEURO: +anxious MSK: Denies weakness, joint pain/swelling SKIN: Denies jaundice, pruritus Vitals: Vitals: Vital Signs Date Time Temp Pulse Resp B/P (MAP) Pulse Ox O2 Delivery O2 Flow Rate FiO2 10/10/20 10:22 88 158/89 10/10/20 09:37 Room Air 10/10/20 07:15 98.0 20 99 2.0 98.0 Labs: Labs: Laboratory Tests Test 10/10/20 01:40 10/10/20 03:14 White Blood Count 4.5 x10^3/uL (4.0-11.0) Red Blood Count 3.89 x10^6/uL (3.50-5.40) Hemoglobin 12.0 g/dL (12.0-15.5) Hematocrit 35.0 % (36.0-47.0) Mean Corpuscular Volume 90 fL (79-100) Mean Corpuscular Hemoglobin 31 pg (25-35) Mean Corpuscular Hemoglobin Concent 34 g/dL (31-37) Red Cell Distribution Width 13.8 % (11.5-14.5) Platelet Count 177 x10^3/uL (140-400) Neutrophils (%) (Auto) 55 % (31-73) Lymphocytes (%) (Auto) 26 % (24-48) Monocytes (%) (Auto) 15 % (0-9) Eosinophils (%) (Auto) 3 % (0-3) Basophils (%) (Auto) 1 % (0-3) Neutrophils # (Auto) 2.5 x10^3/uL (1.8-7.7) Lymphocytes # (Auto) 1.2 x10^3/uL (1.0-4.8) Monocytes # (Auto) 0.7 x10^3/uL (0.0-1.1) Eosinophils # (Auto) 0.1 x10^3/uL (0.0-0.7) Basophils # (Auto) 0.1 x10^3/uL (0.0-0.2) Sodium Level 142 mmol/L (136-145) Potassium Level 4.0 mmol/L (3.5-5.1) Chloride Level 106 mmol/L (98-107) Carbon Dioxide Level 29 mmol/L (21-32) Anion Gap 7 (6-14) Blood Urea Nitrogen 21 mg/dL (7-20) Creatinine 1.1 mg/dL (0.6-1.0) Estimated GFR (Cockcroft-Gault) 47.7 BUN/Creatinine Ratio 19 (6-20) Glucose Level 103 mg/dL (70-99) Calcium Level 9.3 mg/dL (8.5-10.1) Total Bilirubin 0.3 mg/dL (0.2-1.0) Aspartate Amino Transf (AST/SGOT) 24 U/L (15-37) Alanine Aminotransferase (ALT/SGPT) 25 U/L (14-59) Alkaline Phosphatase 67 U/L (46-116) Total Protein 6.4 g/dL (6.4-8.2) Albumin 3.3 g/dL (3.4-5.0) Albumin/Globulin Ratio 1.1 (1.0-1.7) Lipase 149 U/L (73-393) Urine Collection Type Unknown Urine Color Yellow Urine Clarity Clear Urine pH 6.5 (<5.0-8.0) Urine Specific [place] 1.025 (1.000-1.030) Urine Protein Negative mg/dL (NEG-TRACE) Urine Glucose (UA) Negative mg/dL (NEG) Urine Ketones (Stick) 15 mg/dL (NEG) Urine Blood Negative (NEG) Urine Nitrite Negative (NEG) Urine Bilirubin Negative (NEG) Urine Urobilinogen Dipstick 0.2 mg/dL (0.2 mg/dL) Urine Leukocyte Esterase Small (NEG) Urine RBC 0 /HPF (0-2) Urine WBC 5-10 /HPF (0-4) Urine Squamous Epithelial Cells Mod /LPF Urine Bacteria Few /HPF (0-FEW) Urine Mucus Mod /LPF Allergies: Coded Allergies: naproxen (Unverified Allergy, Intermediate, 11/03/14) Medications: Current Medications Medications (Trade) Dose Ordered Sig/Abisai Route PRN Reason Start Time Stop Time Status Last Admin Dose Admin Morphine Sulfate (Morphine Sulfate) 4 mg 1X ONCE IVP 10/10/20 02:30 10/10/20 02:31 DC 10/10/20 02:09 Sodium Chloride 1,000 ml @ 1,000 mls/hr 1X ONCE IV 10/10/20 02:30 10/10/20 03:29 DC 10/10/20 02:12 Lorazepam (Ativan Inj) 1 mg 1X ONCE IVP 10/10/20 04:30 10/10/20 04:31 DC 10/10/20 04:23 Iohexol (Omnipaque 300 Mg/ml) 60 ml 1X ONCE IV 10/10/20 05:30 10/10/20 05:31 DC 10/10/20 05:06 Metoprolol Tartrate (Lopressor Vial) 5 mg 1X ONCE IVP 10/10/20 07:30 10/10/20 07:31 DC 10/10/20 07:05 Fentanyl Citrate (Fentanyl 2ml Vial) 25 mcg PRN Q3HRS PRN IVP SEVERE PAIN 7-10 10/10/20 08:15 10/10/20 09:37 Ondansetron HCl (Zofran) 4 mg PRN Q4HRS PRN IVP NAUSEA/VOMITING 10/10/20 08:15 10/10/20 09:36 Amlodipine Besylate (Norvasc) 10 mg DAILY PO 10/10/20 09:00 10/10/20 10:22 Apixaban (Eliquis) 5 mg BID PO 10/10/20 09:00 10/10/20 10:22 Metoprolol Tartrate (Lopressor) 25 mg BID PO 10/10/20 09:00 10/10/20 10:21 Fluoxetine HCl (PROzac) 40 mg DAILY PO 10/10/20 09:00 10/10/20 10:21 Imaging: Imaging: CT A/P IMPRESSION: 1. No acute process. The appendix is negative. 2. There is prominent fluid within the colon from the cecum through the descending colon can be observed with diarrhea. There is solid stool within the rectosigmoid. No bowel obstruction or inflammatory changes evident. 3. Hiatal hernia of the upper stomach. 4. No ovarian vein thrombosis evident on the current exam. The questioned tubular hypodensity at the right lower quadrant on the prior study may correspond to the ureter, which is decreased in caliber on the current exam. 5. Other incidental findings are stable as described above. PE: GEN: NAD HEENT: Atraumatic, PERRL LUNGS: wheezing HEART: RRR ABD: NABS, S/ND/NT EXTREMITY: No edema SKIN: linear slightly vesicular erythematous rash right flank - most impressive there w/ smaller path right mid abdomen NEURO/PSYCH: A & O 3 A/P: A/P: Shingles H/o GERD - improved w/ PPI H/o irregular bowel habits - controlled/stable CRC screen - none S/p cholecystectomy -- DC per primary w/ treatment for herpes zoster. Consider screening colonoscopy +/- EGD as outpt. Continue PPI. Treat constipation PRN. JADE DAVIDSON Oct 10, 2020 11:18
[2020-10-10] MEDS ORDERED: VALA10005 PO (11:29)
[2020-10-10] MEDS ORDERED: GABA100C6 PO (11:29)
[2020-10-10] MEDS ORDERED: PANTOPRAZOLE 40 MG TABLET.DR. PO SCH (11:30)
[2020-10-10] MEDS ORDERED: traMADol 50 MG TABLET PO PRN (11:30)
[2020-10-10] MEDS ORDERED: POLYETHYLENE GLYCOL 3350 17 GM PACKET. PO PRN (11:30)
--- NOTE | 2020-10-10 13:30 | NUR ---
Discharge instructions given. Prescriptions sent via electronic to pharmacy. Answered questions and concerns. Verbalized understanding. Pt discharged home accompanied by spouse. Escorted out by w/c.
[2020-10-10] MEDS ORDERED: GABAPENTIN 300 MG CAPSULE. PO SCH (14:00)
[2020-10-10] MEDS ORDERED: ATORVASTATIN CALCIUM 20 MG TABLET PO SCH (21:00)
== END 2020-10-10 13:30 | disposition home or self-care (01) ==
LOC: ER 00:25 → ED HOLD 04:03 → 4 SOUTHEST 07:17
PROVIDERS: ADMIT Family Medicine; ATTEND Family Medicine
DX: B02.9 Zoster without complications (principal); F32.9 Major depressive disorder, single episode, unspecified; I10 Essential (primary) hypertension; E88.09 Other disorders of plasma-protein metabolism, not elsewhere classified; Z90.49 Acquired absence of other specified parts of digestive tract; J32.9 Chronic sinusitis, unspecified; K44.9 Diaphragmatic hernia without obstruction or gangrene; F41.9 Anxiety disorder, unspecified; E78.5 Hyperlipidemia, unspecified; L29.9 Pruritus, unspecified; N39.0 Urinary tract infection, site not specified; Z90.710 Acquired absence of both cervix and uterus
CPT/HCPCS: 36415; 74177; 80053; 81001; 83690; 85025; 87086; 96361; 96374; 96375; 99285; G0378; G0379; J2060; J2270; J2405; J3010; J3490; J7030; Q9967